=== PATIENT | male | born 1975 | race Caucasian/White ===

== ENCOUNTER 2017-01-24 17:05 | Emergency (ER) | payer OTHER ==
[2017-01-24 17:31] VITALS: RESP 18; TEMP 98.8
[2017-01-24] MEDS ORDERED: SODIUM CHLORIDE 0.9% 1,000 ML IV STA ×2 (20:20)
[2017-01-24 20:54] LABS: Basophils % (A) 0 %; CH 30.7; Eosinophils % (A) 0 %; HCT 47.4 % (39.0-53.0); HDW 2.85; Luc % (Auto) 1; Lymphocytes # (A) 1.2 k/uL (1.0-4.8); Lymphocytes % (A) 6 %; MCH 30.7 pg (25.0-35.0); MCHC 33.8 g/dL (31.0-37.0); MCV 90.7 fL (80.0-100.0); Mean Platelet Volume 7.1; Monocytes # (A) 0.7 k/uL (0-1.0); Monocytes % (A) 4 %; Neutrophils # (A) 15.9 k/uL (1.3-7.7); Neutrophils % (A) 88 %; RBC 5.22 m/uL (4.30-5.90); RDW 13.5 % (11.5-15.5)
[2017-01-24 20:59] LABS: Appearance,Urine Clear (Clear); Bilirubin,Urine Negative (Negative); Glucose,Urine (UA) 4+ (Negative); Ketones,Urine 1+ (Negative); Leukocyte Esterase,Urine Negative (Negative); Nitrite,Urine Negative (Negative); Protein,Urine Negative (Negative); Specific Gravity,Urine 1.031 (1.001-1.035); UA Billing (MACRO vs. MICRO) CHEM; Urobilinogen,Urine <2.0 mg/dL (<2.0)
[2017-01-24 21:11] LABS: ALT 108 U/L (21-72); AST 57 U/L (17-59); Alkaline Phosphatase 173 U/L (38-126); Anion Gap 17 mmol/L; Blood Urea Nitrogen 23 mg/dL (9-20); Calcium 9.9 mg/dL (8.4-10.2); Carbon Dioxide 22 mmol/L (22-30); Chloride 100 mmol/L (98-107); Non-African American GFR(MDRD) >60 (>60 ml/min/1.73 sqM); Potassium 4.5 mmol/L (3.5-5.1); Sodium 139 mmol/L (137-145); Total Protein 8.2 g/dL (6.3-8.2)
[2017-01-24 21:13] LABS: Glucose 490 mg/dL (74-99)
[2017-01-24 22:21] LABS: Glucose,Whole Blood 451 mg/dL (75-99)
[2017-01-24] MEDS ORDERED: INSULIN REGULAR 100 UNIT/ML VIAL SQ STA (22:50)
--- NOTE | 2017-01-24 22:58 | ED ---
General Adult HPI - General Chief complaint: Recheck/Abnormal Lab/Rx Stated complaint: Blood Sugar Time Seen by Provider: 01/24/17 20:13 Source: patient Mode of arrival: ambulatory Limitations: no limitations - History of Present Illness Initial comments: This 41-year-old white male presents complaining of high blood sugar. He apparently has MS and is been obtaining high-dose steroids for the last 2 days for this. He states that he was having MS symptoms of fatigue weakness and leg pain. He received a steroids yesterday and today. He apparently was diagnosed with an elevated fasting blood sugar/new-onset diabetes with a blood sugar of 233 several days ago and was prescribed metformin 500 mg twice a day by his primary doctor just 2 days ago. He then had the high-dose steroids and his blood sugar was found to be 626 today. He received 20 units of insulin at approximately 3:00 today and was sent to the ER for further evaluation. He is essentially asymptomatic at this time. He denies any increased thirst and increased urination fatigue fevers chills or other complaints or modifying factors. - Related Data Home Medications Medication Instructions Recorded Confirmed Aspirin 81 mg PO DAILY 04/04/15 01/24/17 HYDROcodone/APAP 5-325MG [[place] 1 tab PO BID PRN 04/04/15 01/24/17 5-325] Omeprazole 40 mg PO DAILY 04/04/15 01/24/17 QUEtiapine FUMARATE 25 mg PO QID 04/04/15 01/24/17 lamoTRIgine [LaMICtal] 150 mg PO BID 04/04/15 01/24/17 QUEtiapine [SEROquel] 100 mg PO HS 06/07/15 01/24/17 hydrOXYzine PAMOATE 50 mg PO QID PRN 05/30/16 01/24/17 Atorvastatin [Lipitor] 20 mg PO DAILY 01/24/17 01/24/17 Cetirizine HCl 10 mg PO DAILY 01/24/17 01/24/17 Gabapentin 600 mg PO TID 01/24/17 01/24/17 Mirtazapine [Remeron] 30 mg PO HS 01/24/17 01/24/17 metFORMIN HCL [Glucophage] 500 mg PO DAILY 01/24/17 01/24/17 Allergies Allergy/AdvReac Type Severity Reaction Status Date / Time Penicillins Allergy Severe Anaphylaxis Verified 05/16/17 21:33 Review of Systems ROS Statement: Those systems with pertinent positive or pertinent negative responses have been documented in the HPI. ROS Other: All systems not noted in ROS Statement are negative. 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) History of Any Multi-Drug Resistant Organisms: None Reported Past Surgical History: Adenoidectomy, Cholecystectomy, Hernia Repair, Tonsillectomy Past Anesthesia/Blood Transfusion Reactions: No Reported Reaction Past Psychological History: Anxiety, Depression, PTSD Smoking Status: Current every day smoker Past Alcohol Use History: None Reported Past Drug Use History: None Reported Additional Drug Use History / Comment(s): quite smoking marijuana 3.5 months ago - Past Family History Mother Family Medical History: Asthma, COPD, Diabetes Mellitus General Exam - General Exam Comments Initial Comments: GENERAL: The patient is well nourished and well hydrated. VITAL SIGNS: Heart rate, blood pressure, respiratory rate reviewed as recorded in nurse's notes. EYES: Pupils are round and reactive. Extraocular movements are intact. No conjunctival / lid redness or swelling. ENT: No external evidence of injury, swelling, or ecchymosis. Airway is patent. Throat is clear. NECK: Nontender. No swelling or evidence of injury. No subcutaneous emphysema. Trachea is midline. No thyroid mass. HEART: Regular rate and rhythm. Good peripheral pulses. LUNGS/CHEST: Breath sounds clear and equal bilaterally. No rales, rhonchi, or wheezes. No ecchymosis, subcutaneous emphysema, or tenderness. ABDOMEN: Abdomen soft without tenderness. No palpable masses or organomegaly. No peritoneal signs. No abdominal wall swelling or ecchymosis. EXTREMITIES: No extremity tenderness. Normal muscle tone and function. No thoracolumbar tenderness. NEUROLOGIC: Sensation is grossly intact. Cranial nerve exam reveals face is symmetrical, tongue is midline, speech is clear. SKIN: No abrasions or ecchymosis is noted. No induration or masses noted. PSYCHIATRIC: Alert and oriented. Appropriate behavior and judgment. Limitations: no limitations Course Vital Signs 01/24/17 01/24/17 01/24/17 17:25 20:48 21:49 Temperature 98.8 F Pulse Rate 92 92 93 Respiratory 18 18 18 Rate Blood Pressure 160/92 151/84 150/85 O2 Sat by Pulse 92 L 95 94 L Oximetry Medical Decision Making - Medical Decision Making The patient was seen and examined. All diagnostics were reviewed. His blood sugar was proximally 490 on the labs did come down to 450 on recheck. He receives some ample fluid hydration. The remainder of labs are essentially within normal limits except for a leukocytosis which is likely reactive to the high-dose steroids. He still remains asymptomatic on recheck. Overall, is felt that he stable for discharge. He states that he will be able to follow-up with his doctor tomorrow. He receives 16 more units of insulin subcu. Diet therapy is discussed. He leaves in no distress. Return parameters are discussed. It is felt as though he should avoid any further high-dose steroids and less absolutely necessary and this should be cleared by his PCP prior to receiving them. - Lab Data Result diagrams: 01/24/17 20:37 01/24/17 20:37 Lab Results 01/24/17 01/24/17 01/24/17 Range/Units 20:37 20:37 20:37 WBC 18.0 H (3.8-10.6) k/uL RBC 5.22 (4.30-5.90) m/uL Hgb 16.0 (13.0-17.5) gm/dL Hct 47.4 (39.0-53.0) % MCV 90.7 (80.0-100.0) fL MCH 30.7 (25.0-35.0) pg MCHC 33.8 (31.0-37.0) g/dL RDW 13.5 (11.5-15.5) % Plt Count 237 (150-450) k/uL Neutrophils % 88 % Lymphocytes % 6 % Monocytes % 4 % Eosinophils % 0 % Basophils % 0 % Neutrophils # 15.9 H (1.3-7.7) k/uL Lymphocytes # 1.2 (1.0-4.8) k/uL Monocytes # 0.7 (0-1.0) k/uL Eosinophils # 0.0 (0-0.7) k/uL Basophils # 0.0 (0-0.2) k/uL Sodium 139 (137-145) mmol/L Potassium 4.5 (3.5-5.1) mmol/L Chloride 100 (98-107) mmol/L Carbon Dioxide 22 (22-30) mmol/L Anion Gap 17 mmol/L BUN 23 H (9-20) mg/dL Creatinine 1.06 (0.66-1.25) mg/dL Est GFR (MDRD) Af Amer >60 (>60 ml/min/1.73 sqM) Est GFR (MDRD) Non-Af >60 (>60 ml/min/1.73 sqM) Glucose 490 H* (74-99) mg/dL POC Glucose (mg/dL) (75-99) mg/dL POC Glu Biostatistics Manager ID Calcium 9.9 (8.4-10.2) mg/dL Total Bilirubin 1.0 (0.2-1.3) mg/dL AST 57 (17-59) U/L ALT 108 H (21-72) U/L Alkaline Phosphatase 173 H (38-126) U/L Total Protein 8.2 (6.3-8.2) g/dL Albumin 4.6 (3.5-5.0) g/dL Urine Color Light Yellow Urine Appearance Clear (Clear) Urine pH 5.0 (5.0-8.0) Ur Specific [place] 1.031 (1.001-1.035) Urine Protein Negative (Negative) Urine Glucose (UA) 4+ H (Negative) Urine Ketones 1+ H (Negative) Urine Blood Negative (Negative) Urine Nitrite Negative (Negative) Urine Bilirubin Negative (Negative) Urine Urobilinogen <2.0 (<2.0) mg/dL Ur Leukocyte Esterase Negative (Negative) Acetone, Qual Negative (Negative) 01/24/17 Range/Units 22:16 WBC (3.8-10.6) k/uL RBC (4.30-5.90) m/uL Hgb (13.0-17.5) gm/dL Hct (39.0-53.0) % MCV (80.0-100.0) fL MCH (25.0-35.0) pg MCHC (31.0-37.0) g/dL RDW (11.5-15.5) % Plt Count (150-450) k/uL Neutrophils % % Lymphocytes % % Monocytes % % Eosinophils % % Basophils % % Neutrophils # (1.3-7.7) k/uL Lymphocytes # (1.0-4.8) k/uL Monocytes # (0-1.0) k/uL Eosinophils # (0-0.7) k/uL Basophils # (0-0.2) k/uL Sodium (137-145) mmol/L Potassium (3.5-5.1) mmol/L Chloride (98-107) mmol/L Carbon Dioxide (22-30) mmol/L Anion Gap mmol/L BUN (9-20) mg/dL Creatinine (0.66-1.25) mg/dL Est GFR (MDRD) Af Amer (>60 ml/min/1.73 sqM) Est GFR (MDRD) Non-Af (>60 ml/min/1.73 sqM) Glucose (74-99) mg/dL POC Glucose (mg/dL) 451 H (75-99) mg/dL POC Glu Biostatistics Manager ID Kles, Pratima Calcium (8.4-10.2) mg/dL Total Bilirubin (0.2-1.3) mg/dL AST (17-59) U/L ALT (21-72) U/L Alkaline Phosphatase (38-126) U/L Total Protein (6.3-8.2) g/dL Albumin (3.5-5.0) g/dL Urine Color Urine Appearance (Clear) Urine pH (5.0-8.0) Ur Specific [place] (1.001-1.035) Urine Protein (Negative) Urine Glucose (UA) (Negative) Urine Ketones (Negative) Urine Blood (Negative) Urine Nitrite (Negative) Urine Bilirubin (Negative) Urine Urobilinogen (<2.0) mg/dL Ur Leukocyte Esterase (Negative) Acetone, Qual (Negative) Disposition Clinical Impression: Hyperglycemia, Leukocytosis, Hypertension, Multiple sclerosis, New onset type 2 diabetes mellitus Disposition: HOME SELF-CARE Condition: Good Instructions: Type 2 Diabetes in Adults (ED) Additional Instructions: Please follow-up with your doctor for further diabetic treatment tomorrow without fail. Please drink plenty of water. Referrals: Arash Prather DO [Primary Care Provider] - 1-2 days Time of Disposition: 22:54
[2017-01-24 23:37] VITALS: BP 148/69; PULSE 97
[2017-01-24 23:37] LABS: Glucose,Whole Blood 451 mg/dL (75-99)
[2017-01-25 07:44] LABS: Glucose,Whole Blood 536 mg/dL (75-99)
[2017-01-25 07:44] LABS: Glucose,Whole Blood 483 mg/dL (75-99)
== END 2017-01-24 23:37 | disposition home or self-care (01) ==
LOC: EC 17:05
DX: E11.65 Type 2 diabetes mellitus with hyperglycemia (principal); I10 Essential (primary) hypertension; G35 Multiple sclerosis; D72.829 Elevated white blood cell count, unspecified; G40.909 Epilepsy, unspecified, not intractable, without status epilepticus; F43.10 Post-traumatic stress disorder, unspecified; F41.9 Anxiety disorder, unspecified; F32.9 Major depressive disorder, single episode, unspecified; G62.9 Polyneuropathy, unspecified; F17.200 Nicotine dependence, unspecified, uncomplicated; Z79.82 Long term (current) use of aspirin; Z79.84 Long term (current) use of oral hypoglycemic drugs; Z79.899 Other long term (current) drug therapy; Z88.0 Allergy status to penicillin; Z83.3 Family history of diabetes mellitus
CPT/HCPCS: 36415; 80053; 81003; 82009; 82947; 85025; 96360; 96361; 96365; 99283

== ENCOUNTER → 2017-08-01 | Outpatient (CLI) | payer OTHER ==
--- NOTE | 2017-08-01 14:47 | MR ---
EXAMINATION TYPE: MR brain wo/w con DATE OF EXAM: 08/01/2017 COMPARISON: 06/04/2016 HISTORY: MS TECHNIQUE: Multiplanar, multisequence images of the brain and brainstem is performed without and with IV contras t, utilizing 8 mL intravenous Gadavist gadolinium contrast is administered intravenously. Demyelinat ing disease protocol with additional Sagittal Flair sequence performed. Motion is noted and limits th e examination as the technologist notes that the patient was falling asleep during the examination. FINDINGS: T2 Lesions Present : Yes Approximate Number of Lesions: Multiple scattered as seen on the prior. Locations Identified : Pericallosal, Periventricular, and Juxtacortical. Size of Reference Lesion(s): 1. Left: 0.5 cm x 0.4 cm x 0.6 cm on axial image 21 and sagittal image 8 of FLAIR sequence axial and coronal images. This is similar to the prior examination where it measured 0.6 x 0.4 x 0.5 cm in the left centrum semiovale parietal lobe. 2. Right: 0.6 cm x 0.6 cm x 0.5 cm on axial image 24 and sagittal image 28 of FLAIR sequence axial an d coronal images. This is similar to the prior examination where it measured 0.7 x 0.7 x 0.4 cm in th e subcortical right parietal centrum semiovale. Enhancing Lesion(s) Present: No Change from Prior: Stable Diffusion weighted images demonstrate no evidence of a recent infarct or other diffusion abnormality. There is no worrisome extra-axial fluid collection. The ventricular system and cisternal spaces ar e normal in size and appearance. The brain volume is age appropriate. Midline structures demonstrate normal morphology. The craniocervical junction appears within normal limits. Post contrast images demonstrate no abnormal enhancement. The dural venous sinuses appear pa tent. Mild mucosal thickening is seen within the left maxillary sinus and ethmoid sinuses. The remain ing visualized sinuses are clear and the globes are intact. IMPRESSION: Stable numerous supratentorial bilateral white matter plaques compatible with the patient 's history of multiple sclerosis in comparison to the exam of 06/04/2016. No enhancing lesions or lesi ons that restricted diffusion to indicate active demyelination.
== END | disposition home or self-care (01) ==
LOC: RADMRIMAIN 12:38
PROVIDERS: ATTEND Physician Assistant
DX: R90.82 White matter disease, unspecified (principal)
CPT/HCPCS: 70553; A9581

== ENCOUNTER → 2018-07-12 | Outpatient (CLI) | payer OTHER ==
--- NOTE | 2018-07-15 17:40 | MR ---
EXAMINATION TYPE: MR brain wo/w con DATE OF EXAM: 07/12/2018 COMPARISON: 08/01/2017 HISTORY: 43-year-old male follow-up MS, compare to prior 08-01-17 TECHNIQUE: Multiplanar, multisequence images of the brain and brainstem is performed without and with utilizing 13 mL intravenous Gadavist gadolinium contrast. Demyelinating disease protocol with additional Sagit lynda Flair sequence performed. FINDINGS: Prominent motion artifacts are present. T2 Lesions Present : Yes Approximate Number of Lesions: Numerous scattered, approximately 40-50 in each cerebral hemisphere. Locations Identified : Juxtacortical, periventricular, and deep white matter Size of Reference Lesion(s): 1. 6 mm subcortical a few right parietal lobe, axial image 22, unchanged. 2 6 mm subcortical left frontoparietal junction, axial image 20, unchanged. Enhancing Lesion(s) Present: No T1 Hypointense Lesion(s) Present: Yes but assessment is limited on the sagittal T1 sequence due to mo tion artifacts. Change from Prior: Stable. Diffusion weighted images demonstrate no evidence of a recent infarct or other diffusion abnormality. There is no worrisome extra-axial fluid collection. The ventricular system and cisternal spaces ar e normal in size and appearance. The brain volume is age appropriate. Midline structures demonstrate normal morphology. The craniocervical junction appears within normal limits. Post contrast images demonstrate no abnormal enhancement. The dural venous sinuses appear patent. There is moderate mucosal thickening within the bilateral maxillary and left sphenoid sinuses. Some f rothy partial opacification also seen within the right maxillary sinus. Globes are intact. IMPRESSION: 1. Chronic T2 bright white matter change with moderate to severe scattered burden in both cerebral he mispheres. Findings remain stable from prior exam. 2. No enhancing plaques or restricted diffusion to suggest active demyelination. 3. Moderate chronic maxillary and sphenoid sinus disease with possible superimposed acute right maxil saba sinusitis.
== END ==
LOC: RADMRIMAIN 14:38
PROVIDERS: ATTEND Psychiatry & Neurology Neurology
DX: G80.8 Other cerebral palsy (principal); R90.89 Other abnormal findings on diagnostic imaging of central nervous system; G35 Multiple sclerosis; Z88.0 Allergy status to penicillin
CPT/HCPCS: 70553; A9585

== ENCOUNTER 2021-08-07 00:21 | Inpatient (IN) | payer OTHER ==
[2021-08-07] MEDS ORDERED: LORazepam 2 MG/ML INJ IV STA (00:34)
[2021-08-07] MEDS ORDERED: ONDANSETRON 4 MG/2 ML VIAL IVP STA (00:34)
[2021-08-07] MEDS ORDERED: SODIUM CHLORIDE 0.9% 1,000 ML IV STA (00:34)
--- NOTE | 2021-08-07 00:39 | ED ---
Altered Mental Status HPI - General Stated Complaint: Altered Mental Status Time Seen by Provider: 08/07/21 00:23 Source: RN notes reviewed, old records reviewed Mode of arrival: EMS Limitations: altered mental status - History of Present Illness Initial Comments: This is a 46-year-old male with significant altered mental status patient coming in for evaluation of altered mental status. EMS called by family in roommates is patient was acting more unresponsive and having difficulty communicating. Patient does not necessarily atelectasis on a normal basis or with EMS. He may have history of seizures but they weren't sure. No other significant medical history as far as drug or alcohol abuse. He does have high blood pressure MD Complaint: altered mental status, confusion, decreased responsiveness -: minutes(s) Severity: mild, moderate Consistency of Symptoms: getting worse Context: history of similar presentation Associated Symptoms: diaphoresis Treatments Prior to Arrival: IV fluid, oxygen - Related Data Home Medications Medication Instructions Recorded Confirmed Aspirin 81 mg PO DAILY 04/04/15 01/24/17 HYDROcodone/APAP 5-325MG [[place] 1 tab PO BID PRN 04/04/15 01/24/17 5-325] Omeprazole 40 mg PO DAILY 04/04/15 01/24/17 QUEtiapine FUMARATE 25 mg PO QID 04/04/15 01/24/17 lamoTRIgine [LaMICtal] 150 mg PO BID 04/04/15 01/24/17 QUEtiapine [SEROquel] 100 mg PO HS 06/07/15 01/24/17 hydrOXYzine pamoate [hydrOXYzine 50 mg PO QID PRN 05/30/16 01/24/17 PAMOATE] Atorvastatin [Lipitor] 20 mg PO DAILY 01/24/17 01/24/17 Cetirizine HCl 10 mg PO DAILY 01/24/17 01/24/17 Gabapentin 600 mg PO TID 01/24/17 01/24/17 Mirtazapine [Remeron] 30 mg PO HS 01/24/17 01/24/17 metFORMIN HCL [Glucophage] 500 mg PO DAILY 01/24/17 01/24/17 Allergies Allergy/AdvReac Type Severity Reaction Status Date / Time Penicillins Allergy Severe Anaphylaxis Verified 08/07/21 00:40 Review of Systems ROS Statement: Those systems with pertinent positive or pertinent negative responses have been documented in the HPI. ROS Other: All systems not noted in ROS Statement are negative. 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) History of Any Multi-Drug Resistant Organisms: None Reported Past Surgical History: Adenoidectomy, Cholecystectomy, Hernia Repair, Tonsillectomy Past Anesthesia/Blood Transfusion Reactions: No Reported Reaction Past Psychological History: Anxiety, Depression, PTSD Past Alcohol Use History: None Reported Past Drug Use History: None Reported Additional Drug Use History / Comment(s): quite smoking marijuana 3.5 months ago - Past Family History Mother Family Medical History: Asthma, COPD, Diabetes Mellitus General Exam General appearance: alert, in no apparent distress Head exam: Present: atraumatic, normocephalic, normal inspection Eye exam: Present: normal appearance, PERRL, EOMI. Absent: scleral icterus, conjunctival injection, periorbital swelling ENT exam: Present: normal exam, mucous membranes moist Neck exam: Present: normal inspection. Absent: tenderness, meningismus, lympha denopathy Respiratory exam: Present: normal lung sounds bilaterally. Absent: respiratory distress, wheezes, rales, rhonchi, stridor Cardiovascular Exam: Present: regular rate, normal rhythm, normal heart sounds. Absent: systolic murmur, diastolic murmur, rubs, gallop, clicks GI/Abdominal exam: Present: soft, normal bowel sounds. Absent: distended, tenderness, guarding, rebound, rigid Extremities exam: Present: normal inspection, full ROM, normal capillary refill. Absent: tenderness, pedal edema, joint swelling, calf tenderness Back exam: Present: normal inspection Neurological exam: Present: alert, oriented X3, CN II-XII intact Psychiatric exam: Present: normal affect, normal mood Skin exam: Present: warm, dry, intact, normal color. Absent: rash Course Vital Signs 08/07/21 08/07/21 00:35 01:40 Temperature 98.7 F Pulse Rate 100 84 Respiratory 25 H 16 Rate Blood Pressure 125/85 116/73 O2 Sat by Pulse 95 97 Oximetry - Reevaluation(s) Reevaluation #1: 08/07/21 00:39 Medical record is reviewed Medical Decision Making - Lab Data Result diagrams: 08/07/21 00:41 08/07/21 01:01 Lab Results 08/07/21 08/07/21 08/07/21 Range/Units 00:41 01:01 01:01 WBC 10.4 (3.8-10.6) k/uL RBC 5.09 (4.30-5.90) m/uL Hgb 16.0 (13.0-17.5) gm/dL Hct 45.6 (39.0-53.0) % MCV 89.6 (80.0-100.0) fL MCH 31.5 (25.0-35.0) pg MCHC 35.1 (31.0-37.0) g/dL RDW 13.4 (11.5-15.5) % Plt Count 327 (150-450) k/uL MPV 7.4 Neutrophils % 69 % Lymphocytes % 15 % Monocytes % 9 % Eosinophils % 3 % Basophils % 1 % Neutrophils # 7.2 (1.3-7.7) k/uL Lymphocytes # 1.5 (1.0-4.8) k/uL Monocytes # 1.0 (0-1.0) k/uL Eosinophils # 0.3 (0-0.7) k/uL Basophils # 0.1 (0-0.2) k/uL PT 10.3 (9.0-12.0) sec INR 1.0 (<1.2) APTT 21.2 L (22.0-30.0) sec Sodium 139 (137-145) mmol/L Potassium 4.1 (3.5-5.1) mmol/L Chloride 105 (98-107) mmol/L Carbon Dioxide 24 (22-30) mmol/L Anion Gap 10 mmol/L BUN 21 H (9-20) mg/dL Creatinine 1.02 (0.66-1.25) mg/dL Est GFR (CKD-EPI)AfAm >90 (>60 ml/min/1.73 sqM) Est GFR (CKD-EPI)NonAf 87 (>60 ml/min/1.73 sqM) Glucose 166 H (74-99) mg/dL Plasma Lactic Acid Sonny (0.7-2.0) mmol/L Calcium 9.7 (8.4-10.2) mg/dL Phosphorus 3.7 (2.5-4.5) mg/dL Magnesium 1.7 (1.6-2.3) mg/dL Total Bilirubin 0.3 (0.2-1.3) mg/dL AST 25 (17-59) U/L ALT 27 (4-49) U/L Alkaline Phosphatase 71 (38-126) U/L Troponin I (0.000-0.034) ng/mL NT-Pro-B Natriuret Pep pg/mL Total Protein 7.4 (6.3-8.2) g/dL Albumin 4.4 (3.5-5.0) g/dL Serum Alcohol <10 mg/dL 08/07/21 08/07/21 08/07/21 Range/Units 01:01 01:01 01:01 WBC (3.8-10.6) k/uL RBC (4.30-5.90) m/uL Hgb (13.0-17.5) gm/dL Hct (39.0-53.0) % MCV (80.0-100.0) fL MCH (25.0-35.0) pg MCHC (31.0-37.0) g/dL RDW (11.5-15.5) % Plt Count (150-450) k/uL MPV Neutrophils % % Lymphocytes % % Monocytes % % Eosinophils % % Basophils % % Neutrophils # (1.3-7.7) k/uL Lymphocytes # (1.0-4.8) k/uL Monocytes # (0-1.0) k/uL Eosinophils # (0-0.7) k/uL Basophils # (0-0.2) k/uL PT (9.0-12.0) sec INR (<1.2) APTT (22.0-30.0) sec Sodium (137-145) mmol/L Potassium (3.5-5.1) mmol/L Chloride (98-107) mmol/L Carbon Dioxide (22-30) mmol/L Anion Gap mmol/L BUN (9-20) mg/dL Creatinine (0.66-1.25) mg/dL Est GFR (CKD-EPI)AfAm (>60 ml/min/1.73 sqM) Est GFR (CKD-EPI)NonAf (>60 ml/min/1.73 sqM) Glucose (74-99) mg/dL Plasma Lactic Acid Sonny 3.8 H* (0.7-2.0) mmol/L Calcium (8.4-10.2) mg/dL Phosphorus (2.5-4.5) mg/dL Magnesium (1.6-2.3) mg/dL Total Bilirubin (0.2-1.3) mg/dL AST (17-59) U/L ALT (4-49) U/L Alkaline Phosphatase (38-126) U/L Troponin I <0.012 (0.000-0.034) ng/mL NT-Pro-B Natriuret Pep 39 pg/mL Total Protein (6.3-8.2) g/dL Albumin (3.5-5.0) g/dL Serum Alcohol mg/dL - EKG Data -: EKG Interpreted by Me (EKG shows sinus tachycardia 102 OH 180 QRS 88 QTc 432) Disposition Clinical Impression: Altered mental status, Multiple sclerosis, New onset seizure Disposition: ADMITTED IP TO THIS [facility] Condition: Good Instructions (If sedation given, give patient instructions): Seizure/Epilepsy Discharge Instructions & Follow-Up Is patient prescribed a controlled substance at d/c from ED?: No Referrals: None,Stated [REFERRING] - 1-2 days
[2021-08-07] MEDS ORDERED: levETIRAcetam IV 1,000 MG in SALINE 1 100ML.BAG IVPB ONE (00:45)
[2021-08-07] MEDS ORDERED: TRANEXAMIC ACID 1,000 MG in SODIUM CHLORIDE 0.9% 100 ML IVPB ONE (01:00)
[2021-08-07 01:10] LABS: Basophils # (A) 0.1 k/uL (0-0.2); Basophils % (A) 1 %; Eosinophils # (A) 0.3 k/uL (0-0.7); Eosinophils % (A) 3 %; HCT 45.6 % (39.0-53.0); Lymphocytes # (A) 1.5 k/uL (1.0-4.8); Lymphocytes % (A) 15 %; MCH 31.5 pg (25.0-35.0); MCHC 35.1 g/dL (31.0-37.0); MCV 89.6 fL (80.0-100.0); Mean Platelet Volume 7.4; Monocytes % (A) 9 %; Neutrophils # (A) 7.2 k/uL (1.3-7.7); Neutrophils % (A) 69 %; Platelet Count 327 k/uL (150-450); RBC 5.09 m/uL (4.30-5.90); RDW 13.4 % (11.5-15.5); WBC 10.4 k/uL (3.8-10.6)
[2021-08-07 01:26] LABS: ALT 27 U/L (4-49); AST 25 U/L (17-59); African American GFR (CKD) >90 (>60 ml/min/1.73 sqM); Albumin 4.4 g/dL (3.5-5.0); Alcohol <10 mg/dL; Alkaline Phosphatase 71 U/L (38-126); Anion Gap 10 mmol/L; Blood Urea Nitrogen 21 mg/dL (9-20); Calcium 9.7 mg/dL (8.4-10.2); Carbon Dioxide 24 mmol/L (22-30); Chloride 105 mmol/L (98-107); Glucose 166 mg/dL (74-99); Magnesium 1.7 mg/dL (1.6-2.3); Non-African American GFR(CKD) 87 (>60 ml/min/1.73 sqM); Phosphorus 3.7 mg/dL (2.5-4.5); Potassium 4.1 mmol/L (3.5-5.1); Sodium 139 mmol/L (137-145); Total Bilirubin 0.3 mg/dL (0.2-1.3); Total Protein 7.4 g/dL (6.3-8.2)
[2021-08-07 01:29] LABS: Prothrombin Time 10.3 sec (9.0-12.0)
--- NOTE | 2021-08-07 01:30 | CT ---
EXAMINATION TYPE: CT brain wo con DATE OF EXAM: 08/07/2021 COMPARISON: HISTORY: AMS CT DLP: 1127.4 mGycm Automated exposure control for dose reduction was used. Ventricles have normal size. There is no mass effect nor midline shift. There is no sign of intracran ial hemorrhage. Calvarium is intact. There is mucosal thickening in the maxillary sinuses. IMPRESSION: Negative CT scan of the brain. Maxillary sinusitis. Brain not changed compared to MR scan of 8.
[2021-08-07 01:33] LABS: Partial Thromboplastin Time 21.2 sec (22.0-30.0)
[2021-08-07] MEDS ORDERED: NALOXONE 0.4 MG/ML 1 ML VIAL IV PRN (02:26)
[2021-08-07] MEDS ORDERED: ONDANSETRON 4 MG/2 ML VIAL IVP PRN (02:26)
[2021-08-07] MEDS: SODIUM CHLORIDE 0.9% 1,000 ML IV SCH ×3 (03:17→20:25)
[2021-08-07] MEDS: LORazepam 2 MG/ML INJ IV PRN ×2 (03:49→09:44)
--- NOTE | 2021-08-07 10:59 | P.CNNES ---
History of Present Illness Consult date: 08/07/21 Requesting physician: Brenden Rider Reason for Consult: new seizure History of Present Illness: This is a 46-year-old gentleman with medical history of seizure, multiple sclerosis, peripheral neuropathy, hypertension, duodenal ulcer, anxiety and depression who presented emergency department on 08/07/2021 altered mental status. She is a poor historian and some of the history is obtained from medical records. Per the ED, it is reported that the patient was more unresponsive and having difficulty communicating that was reported to EMS. Per the patient he resides with his 2 friends and denies a having any report of seizure-like activity by his friends. He said the his last seizure was about 8- 10 years ago. He denies of any fever, any headache, any neck pain, any focal weakness, any new numbness or tingling. He denies of any difficulty getting his words out or swallowing. Per the patient's nurse over night nurse stated that the patient had the episodes of vomiting. Per the patient nurse no seizure-like activity during this admission so far. She stated that he is on Lamictal 150 mg a tablet twice a day for his mood and not prescribed for seizure. It seems that his outpatient pharmacy was contacted per the nurse and looks like his Lamictal was last filled in February 2021 for 2 months supply and not filled after that. Per the patient he continues to be on medications but he was inconsistent about that He said in the past he was on Keppra for his seizures but that was a long time ago. Patient stated that the he has a history of relapsing remitting multiple sclerosis. He says that he fol lows up with Dr. Villanueva for his neurological management. He cannot tell me what medication he is on for relapsing remitting multiple sclerosis. He stated that in the past he had weakness of upper and lower extremity and had a CSF fluid once in the past and it was normal. Some of his other medication as per EMR metformin, Remeron 30 mg daily at bedtime, gabapentin 600 mg a tablet 3 times a day, aspirin 81 mg daily, cetirizine, baclofen 10 mg daily, all per his all, Lasix, losartan, trazodone, pravastatin, fiber 860 mg daily. Of note patient had multiple MRIs in our facility in the last 1 was on 07/15/2018 is reported as chronic T2 bright white matter changes with moderate to severe scattered burden in both cerebral hemisphere. Finding remained stable from prior exam. No enhancing plaques or restricted diffusion to suggest active demyelination. Moderate chronic maxillary and sphenoid sinus disease with possible superimposed acute right maxillary sinusitis. Some of the workup in the hospital consisted of: Initial vital signs his blood pressure 125/85, heart rate of 100, respiratory of 25, temperature of 98.7 Fahrenheit and pulse ox of the 95% room air. CBC with differential is unremarkable Sodium was 139, creatinine is 1.02, BUN 21, initial serum glucose is 166, calci um 9.7, phosphorus is 3.7, magnesium is 1.7, AST of 25, ALT of 27. Serum lactic acid and initial one is 3.8 and is trending down Serum alcohol level was less than 10 Harper virus PCR was not detected. CT of the head is reported as negative CT scan of the brain. Maxillary sinusitis. Brain not change compared to the MRI scan of 07/2018. Personally reviewed the CT of the head and there is no acute or subacute ischemia and there is no intraparenchymal hemorrhage. Review of Systems Review of system: The 12 point system was reviewed and apparent positive and negative per HPI. 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) History of Any Multi-Drug Resistant Organisms: None Reported Past Surgical History: Adenoidectomy, Cholecystectomy, Hernia Repair, Tonsillectomy Past Anesthesia/Blood Transfusion Reactions: No Reported Reaction Past Psychological History: Anxiety, Depression, PTSD Past Alcohol Use History: None Reported Past Drug Use History: None Reported Additional Drug Use History / Comment(s): quite smoking marijuana 3.5 months ago - Past Family History Mother Family Medical History: Asthma, COPD, Diabetes Mellitus Medications and Allergies Home Medications Medication Instructions Recorded Confirmed Type Omeprazole 20 mg PO DAILY 04/04/15 08/07/21 History hydrOXYzine pamoate [hydrOXYzine 50 mg PO BID PRN 05/30/16 08/07/21 History PAMOATE] Cetirizine HCl 10 mg PO DAILY 01/24/17 08/07/21 History Acetaminophen Tab [Tylenol Tab] 1,000 mg PO Q6H PRN 08/07/21 08/07/21 History Albuterol Sulfate [Proair Hfa] 1 - 2 puff INHALATION DIRECTED 08/07/21 08/07/21 History PRN Baclofen [Lioresal] 10 mg PO DAILY 08/07/21 08/07/21 History Cholecalciferol [Vitamin D3 (25 25 mcg PO DAILY 08/07/21 08/07/21 History Mcg = 1000 Iu)] Diroximel Fumarate [Vumerity] 462 mg PO BID 08/07/21 08/07/21 History Fenofibrate [Lofibra] 160 mg PO DAILY 08/07/21 08/07/21 History Furosemide [Lasix] 20 mg PO DIRECTED 08/07/21 08/07/21 History Gabapentin 800 mg PO TID 08/07/21 08/07/21 History Glimepiride [Amaryl] 4 mg PO DIRECTED 08/07/21 08/07/21 History HYDROcodone/APAP 10-325MG [[place] 1 tab PO TID 08/07/21 08/07/21 History 10-325] Ibuprofen [Motrin] 800 mg PO Q6H PRN 08/07/21 08/07/21 History Losartan [Cozaar] 25 mg PO DIRECTED 08/07/21 08/07/21 History Metoprolol Tartrate [Lopressor] 25 mg PO DIRECTED 08/07/21 08/07/21 History Mirtazapine [Remeron] 45 mg PO HS 08/07/21 08/07/21 History Pravastatin Sodium [Pravachol] 40 mg PO DAILY 08/07/21 08/07/21 History hydrALAZINE HCL [Apresoline] 50 mg PO DAILY 08/07/21 08/07/21 History lamoTRIgine [LaMICtal] 150 mg PO DIRECTED 08/07/21 08/07/21 History metFORMIN HCL [Glucophage] 1,000 mg PO BID 08/07/21 08/07/21 History traZODone HCL [Desyrel] 100 mg PO HS 08/07/21 08/07/21 History Allergies Allergy/AdvReac Type Severity Reaction Status Date / Time Penicillins Allergy Severe Anaphylaxis Verified 08/07/21 09:04 Physical Examination - Vital Signs Vital Signs: Vital Signs Temp Pulse Resp BP Pulse Ox 08/07/21 07:34 93 18 126/73 96 11/27/21 06:00 93 16 123/69 95 08/07/21 03:00 90 16 131/55 96 08/07/21 01:40 84 16 116/73 97 08/07/21 00:35 98.7 F 100 25 H 125/85 95 Intake and Output 08/06/21 08/07/21 08/07/21 22:59 06:59 14:59 Other: Weight 113.398 kg GENERAL: The patient is lying in bed and is not in acute distress. CHEST: The heart rate is regular rate rhythm. No murmurs to auscultation. No carotid bruit bilaterally. LUNG: Clear to auscultation bilaterally no wheezing noted throughout. Not labored breathing. ABDOMEN/GI: Bowel sounds present in all 4 quadrants. No tenderness to palpation throughout. PSYCH: Flat affect. NEUROLOGICAL: Higher mental function: The patient is awake, alert, oriented to self, place and month but not year. He kept on saying 1986. He is able to name objects correctly (pen, watch, glasses). Patient is following simple commands. No aphasia and no neglect. Cranial nerves: The pupils are round, equal and reactive to light and accommodation. Visual agustin are full to confrontation throughout. Extraocular movement is intact no nystagmus is noted. Facial sensation is normal to touch throughout. The facial strength is normal throughout. Hearing is normal bilaterally to hand rub. Tongue is midline and moved [id number] without any difficulty. No dysarthria is noted. Shoulder shrug is normal bilaterally. Motor: Gait is deferred. The strength is 5 over 5 throughout. Normal tone and bulk. Cerebellum: Normal finger to nose bilaterally. Sensation: Sensation is normal to touch throughout. Reflexes (right/left): 3+ thorughout uppers while lowers are 2+. Plantars are downgoing bilaterally. Results - Laboratory Findings CBC and BMP: 08/07/21 00:41 08/07/21 01:01 Abnormal Lab Findings: Abnormal Labs 08/07/21 08/07/21 08/07/21 01:01 01:01 01:01 APTT 21.2 L BUN 21 H Glucose 166 H Plasma Lactic Acid Sonny 3.8 H* 08/07/21 04:30 APTT BUN Glucose Plasma Lactic Acid Sonny 2.3 H* Assessment and Plan Assessment: Reported Altered mental status with elevated lactic: Encephalopathy of unknown etiology. Cannot exclude seizure (especially because of history of seizure. Per outpatient pharmacy patient has not filled his Lamictal recently (but per patient he continues to take Lamictal but he was inconsistent and said he is on it only for mood and last seizure was 8-10 years ago). Rule out any other under lying infection. History of Reported Seizures (last seizure 8-10 years ago according to patient). Reported history of Relapsing-Remitting multiple sclerosis History Peripheral neuropathy Hypertension History of duodenal ulcer Anxiety Depression Plan: * The ED the patient was given Keppra loading dose of 1000 mg once then was given 1 mg of Ativan. * I restarted the patient Lamictal 150 mg 1 tablet twice a day. We'll get Lamictal levels. * I ordered MRI of the brain and C-spine with and without * Routine EEG is ordered by that ED team (will get done this Monday). * Every 4 hours neuro checks * Placed on seizure precautions seizure pads * The ED team give the patient Solu-Medrol 250 mg once start the patient on 500 every 6 hours because of the patient's history of multiple sclerosis. I stopped the Solu-Medrol and will get MRI of the brain and cervical spine to find out whether he truly has any demyelinating lesion on the images and if there is any new lesion will start the patient on steroids. * Ordered TSH, vitamin B12, folate, ammonia level. * Consulted psychiatry team because of his mood disorder as well as polypharmacy. * We'll defer the rest of the medical management to the primary team. * Upon discharge the patient needs to follow-up with a neurologist (Dr. Villanueva) as an outpatient within 1-2 weeks. Plan was discussed with the patient's nurse. Thank you for the consultation Cesar Prather M.D. Neuro-hospitalist Time with Patient: Greater than 30
[2021-08-07] MEDS: lamoTRIgine 100 MG TAB PO SCH ×3 (11:10→11:12)
[2021-08-07] MEDS: lamoTRIgine 25 MG TAB PO SCH ×2 (11:12→20:26)
[2021-08-07] MEDS ORDERED: hydrOXYzine pamoate 25 MG CAP PO PRN (12:09)
--- NOTE | 2021-08-07 12:17 | P.CN ---
Psychiatric Consult - . Consult date: 08/07/21 Consult:: 08/07/21 10:50 IDENTIFYING DATA: This patient is a 46-year-old male, who currently lives with his friend in the house has 4 kids and is . He is collecting Social Security disability. REASON FOR REFERRAL: Psychiatry was consulted for "mood disorder, polypharmacy." HISTORY OF PRESENT ILLNESS: The patient presented to the hospital with altered mental status via EMS. Patient apparently was unresponsive at home and a pparently has a history of seizures. His computed tomography scan was negative. Neurology has been following along. Patients nurse claims a patient has been confused and disoriented and family claims that he has been using methamphetamine. He has a questionable history of seizures. Patient was seen sleeping and was awoken by staff writer today. He was agreeable to speak. He claims that he is feeling sleepy and she was having difficulties with walking and not coherent at home. He claims that this is the first time it's ever happened and he is seeing a neurologist in the community. He claims that he is taking his medications at home every day. He claims that when this event occurred he was at home sleeping. He states that he follows up with his primary care provider for his medications. He states that his mood is "fine" and is denying any depression or anxiety today. He does admit to a history of depression however. He states that his sleep has been "on and off". He claims that his appetite is fair. He was oriented to month and year however did not know today's specific date. He does know the current president. He knows that he is in [place] in a hospital. He knows his full name. He was not able to list the days of the week backwards correctly. He has fair attention span.. At this time patient denies any suicidal or homical ideations, intent or plan. Patient denies any auditory, visual hallucinations and denies any paranoia or delusions. Patients admits to using marijuana daily and cigarettes. He denies any other recreational drug use. PAST PSYCHIATRIC HISTORY: Patient has a a history of cannabis use pressured and anxiety. He claims that he was on trazodone Vistaril Remeron and Lamictal in the past. Patient denies any previous psychiatric hospitalizations. Patient denies any psychiatric outpatient follow-up. He states that he currently follows up with his PCP for his medications. Patient denies any history of suicide attempts in the past. 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 CHEMICAL DEPENDENCY HISTORY: as per HPI. FAMILY PSYCHIATRIC/SUBSTANCE USE HISTORY: denies SOCIAL HISTORY: Patient was born and raised in [facility]. He claims that he completed high school. He states that he served in the [employer] from 1991- 1995. He states that he is currently collects Social Security disability. He currently has 4 children. States he lives with a friend in a house. He claims that he served 16 years in half-way for neglecting to pay child support. MENTAL STATUS EXAM: General Appearance: Patient appears to be overweight, multiple tattoos, stated age is sleepy, pleasant, and cooperative. Patient appears to have fair hygiene and grooming wearing hospital gown with fair eye contact. Behavior: Patient is calmly lying in bed without any agitated behavior. cooperative Speech: Patient's speech is fluent and nonpressured. concrete Mood/Affect: Patient reports their mood is "ok", affect is congruent and constricted Suicidality/Homicidality: Patient denies having any suicidal or homicidal ideation intent or plan. Perceptions: Patient denies any visual hallucinations and denies any auditory hallucinations Though content/process: concrete, gaurded at times. logical. Memory and concentration: AOX2, does not know the specific date but does know the month and year, fair attention span. Cannot list days of week backwards. Judgment and insight: poor IMPRESSIONS: Delirium likely multiple etiologies including possible substance use versus seizure history of depressive disorder and anxiety disorder cannabis use disorder nicotine dependence PLAN: -At this time patient DOES NOT meet criteria for inpatient psychiatric admission. -Delirium precautions recommended with patient including - avoiding use of narcotics and CUSTOMER COUNTER REPRESENTATIVE sedatives, limit anticholinergic medications when possible, frequent re-orientation, minimize use of restraints, open window shades during the day and close them at night -Would recommend the following medication changes/additions: Restarted patient back on trazodone 100 mg daily at bedtime for insomnia/mood. Restarted Vistaril 25 mg every 6 hours when necessary for anxiety. Hold off on Remeron at this time. Continue Lamictal as prescribed. Discontinue Ativan and hold off on any benzodiazepines as this may exacerbate patient's confusion and delirium. -Ordered UDS to rule out substance use of any other substances. -fabric worker foreman to provide patient with outpatient mental health/psychiatry resources for appropriate follow up upon discharge -Strategic Account Executive spoke with patient about substance abuse and the harmful effects on medical and mental health, patient verbally understood and agreed. -Communicated plan to patient's nurse -Psychiatry will sign off at this time -Please contact with any questions. 08/07/21 12:09
[2021-08-07 12:35] LABS: Appearance,Urine Clear (Clear); Bilirubin,Urine Negative (Negative); Blood,Urine Negative (Negative); Color,Urine Yellow; Glucose,Urine (UA) 4+ (Negative); Ketones,Urine Negative (Negative); Leukocyte Esterase,Urine Negative (Negative); Nitrite,Urine Negative (Negative); PH, Urine 5.5 (5.0-8.0); Protein,Urine Trace (Negative); Specific Gravity,Urine 1.026 (1.001-1.035); Urobilinogen,Urine <2.0 mg/dL (<2.0)
[2021-08-07 13:00] LABS: Phencyclidine Screen,Urine Not Detected (NotDetected); Urn Cannabinoid Scrn Detected (NotDetected)
[2021-08-07 13:01] LABS: Amphetamine Screen,Urine Detected (NotDetected); Barbiturate Screen,Urine Not Detected (NotDetected); Benzodiazepines Screen,Urine Detected (NotDetected); Cocaine Screen,Urine Detected (NotDetected); Methadone Screen, Urine Not Detected (NotDetected); Opiate Screen,Urine Not Detected (NotDetected); Oxycodone Screen, Urine Not Detected (NotDetected); Tricyclic Antidepressant,Urine Not Detected (NotDetected)
--- NOTE | 2021-08-07 17:15 | XR ---
EXAMINATION TYPE: XR chest 2V DATE OF EXAM: 08/07/2021 COMPARISON: NONE HISTORY: Hypoxemia TECHNIQUE: 2 views FINDINGS: Heart and mediastinum are normal. Lungs are clear. Diaphragm is normal. Bony thorax is inta ct. IMPRESSION: Normal chest.
--- NOTE | 2021-08-07 18:12 | P.HPIM ---
History of Present Illness H&P Date: 08/07/21 Chief Complaint: Altered mental status 46-year-old male with significant altered mental status patient coming in for evaluation of altered mental status. EMS called by family in roommates is patient was acting more unresponsive and having difficulty communicating. Patient does not necessarily atelectasis on a normal basis or with EMS. He may have history of seizures but they weren't sure. No other significant medical history as far as drug or alcohol abuse. He does have high blood pressure Workup in ED CBC with differential is unremarkable Sodium was 139, creatinine is 1.02, BUN 21, initial serum glucose is 166, calcium 9.7, phosphorus is 3.7, magnesium is 1.7, AST of 25, ALT of 27. Serum lactic acid and initial one is 3.8 and is trending down Serum alcohol level was less than 10 Harper virus PCR was not detected. CT of the head is reported as negative CT scan of the brain. Maxillary sinusitis. Brain not change compared to the MRI scan of 07/2018. Personally reviewed the CT of the head and there is no acute or subacute ischemia and there is no intraparenchymal hemorrhage. Review of Systems REVIEW OF SYSTEMS: CONSTITUTIONAL: No fever, no malaise, no fatigue. HEENT: No recent visual problems or hearing problems. Denied any sore throat. CARDIOVASCULAR: No chest pain, orthopnea, PND, no palpitations, no syncope. PULMONARY: No shortness of breath, no cough, no hemoptysis. GASTROINTESTINAL: No diarrhea, no nausea, no vomiting, no abdominal pain. NEUROLOGICAL: No headaches, no weakness, no numbness. HEMATOLOGICAL: Denies any bleeding or petechiae. GENITOURINARY: Denies any burning micturition, frequency, or urgency. MUSCULOSKELETAL/RHEUMATOLOGICAL: Denies any joint pain, swelling, or any muscle pain. ENDOCRINE: Denies any polyuria or polydipsia. The rest of the 14-point review of systems is negative. 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) History of Any Multi-Drug Resistant Organisms: None Reported Past Surgical History: Adenoidectomy, Cholecystectomy, Hernia Repair, Tonsillectomy Past Anesthesia/Blood Transfusion Reactions: No Reported Reaction Past Psychological History: Anxiety, Depression, PTSD Past Alcohol Use History: None Reported Past Drug Use History: None Reported Additional Drug Use History / Comment(s): quite smoking marijuana 3.5 months ago - Past Family History Mother Family Medical History: Asthma, COPD, Diabetes Mellitus Medications and Allergies Home Medications Medication Instructions Recorded Confirmed Type Omeprazole 20 mg PO DAILY 04/04/15 08/07/21 History hydrOXYzine pamoate [hydrOXYzine 50 mg PO BID PRN 05/30/16 08/07/21 History PAMOATE] Cetirizine HCl 10 mg PO DAILY 01/24/17 08/07/21 History Acetaminophen Tab [Tylenol Tab] 1,000 mg PO Q6H PRN 08/07/21 08/07/21 History Albuterol Sulfate [Proair Hfa] 1 - 2 puff INHALATION DIRECTED 08/07/21 08/07/21 History PRN Baclofen [Lioresal] 10 mg PO DAILY 08/07/21 08/07/21 History Cholecalciferol [Vitamin D3 (25 25 mcg PO DAILY 08/07/21 08/07/21 History Mcg = 1000 Iu)] Diroximel Fumarate [Vumerity] 462 mg PO BID 08/07/21 08/07/21 History Fenofibrate [Lofibra] 160 mg PO DAILY 08/07/21 08/07/21 History Furosemide [Lasix] 20 mg PO DIRECTED 08/07/21 08/07/21 History Gabapentin 800 mg PO TID 08/07/21 08/07/21 History Glimepiride [Amaryl] 4 mg PO DIRECTED 08/07/21 08/07/21 History HYDROcodone/APAP 10-325MG [[place] 1 tab PO TID 08/07/21 08/07/21 History 10-325] Ibuprofen [Motrin] 800 mg PO Q6H PRN 08/07/21 08/07/21 History Losartan [Cozaar] 25 mg PO DIRECTED 08/07/21 08/07/21 History Metoprolol Tartrate [Lopressor] 25 mg PO DIRECTED 08/07/21 08/07/21 History Mirtazapine [Remeron] 45 mg PO HS 08/07/21 08/07/21 History Pravastatin Sodium [Pravachol] 40 mg PO DAILY 08/07/21 08/07/21 History hydrALAZINE HCL [Apresoline] 50 mg PO DAILY 08/07/21 08/07/21 History lamoTRIgine [LaMICtal] 150 mg PO DIRECTED 08/07/21 08/07/21 History metFORMIN HCL [Glucophage] 1,000 mg PO BID 08/07/21 08/07/21 History traZODone HCL [Desyrel] 100 mg PO HS 08/07/21 08/07/21 History Allergies Allergy/AdvReac Type Severity Reaction Status Date / Time Penicillins Allergy Severe Anaphylaxis Verified 08/07/21 09:04 Physical Exam Vitals: Vital Signs Temp Pulse Resp BP Pulse Ox 08/07/21 07:34 93 18 126/73 96 08/07/21 06:00 93 16 123/69 95 08/07/21 03:00 90 16 131/55 96 08/07/21 01:40 84 16 116/73 97 08/07/21 00:35 98.7 F 100 25 H 125/85 95 Intake and Output 08/06/21 08/07/21 08/07/21 22:59 06:59 14:59 Other: Weight 113.398 kg PHYSICAL EXAMINATION: GENERAL: The patient is alert and oriented x3, not in any acute distress. Well developed, well nourished. HEENT: Pupils are round and equally reacting to light. EOMI. No scleral icterus. No conjunctival pallor. Normocephalic, atraumatic. No pharyngeal erythema. No thyromegaly. CARDIOVASCULAR: S1 and S2 present. No murmurs, rubs, or gallops. PULMONARY: Chest is clear to auscultation, no wheezing or crackles. ABDOMEN: Soft, nontender, nondistended, normoactive bowel sounds. No palpable organomegaly. MUSCULOSKELETAL: No joint swelling or deformity. EXTREMITIES: No cyanosis, clubbing, or pedal edema. NEUROLOGICAL: Gross neurological examination did not reveal any focal deficits. SKIN: No rashes. Results CBC & Chem 7: 08/07/21 00:41 08/07/21 01:01 Labs: Abnormal Lab Results - Last 24 Hours (Table) 08/07/21 08/07/21 08/07/21 Range/Units 01:01 01:01 01:01 APTT 21.2 L (22.0-30.0) sec BUN 21 H (9-20) mg/dL Glucose 166 H (74-99) mg/dL Plasma Lactic Acid Sonny 3.8 H* (0.7-2.0) mmol/L 08/07/21 08/07/21 Range/Units 04:30 08:49 APTT (22.0-30.0) sec BUN (9-20) mg/dL Glucose (74-99) mg/dL Plasma Lactic Acid Sonny 2.3 H* 2.5 H* (0.7-2.0) mmol/L Assessment and Plan Assessment: 1. Altered mental status with elevated lactic acid levels; encephalopathy versus seizure disorder - Patient was given a loading dose of Keppra thousand milligrams in ED; neurology on board and recommending to resume home dose of Lamictal 150 mg twice a day and obtain Lamictal levels for further recommendations - MRI of the brain and C-spine is ordered along with EEG; TSH, vitamin B12, folate and ammonia levels are ordered - Patient will remain on seizure precautions and neuro checks every 4 hours 2. Possible exacerbation of MS - Patient received IV Solu-Medrol to 50 mg in ED; neurology recommending to hold off on Solu-Medrol. MRI of the brain and cervical spine is obtained to evaluate for demyelinating lesion and for any new lesions that might have developed 3. Mood disorder; psychiatry is consulted for recommendations on medications due to polypharmacy 4. Hypertension; we will resume home dose of losartan 25 mg daily and metoprolol 25 mg daily along with hydralazine 50 mg daily 5. Diabetes mellitus type 2; metformin thousand milligrams twice a day 6. Hyperlipidemia; Pravachol 40 mg daily DVT prophylaxis; SCDs/subcu heparin CODE STATUS; full code
[2021-08-07 18:21] LABS: Folate, Serum 9.2 ng/mL (4.40-31.00)
[2021-08-07] MEDS ORDERED: SODIUM CHLORIDE 0.9% 500 ML 500 ML IV ONE ×2 (19:58→22:26)
[2021-08-07] MEDS ORDERED: traZODone HCL 100 MG TAB PO SCH (21:00)
[2021-08-07 21:35] VITALS: RESP 20
[2021-08-08] MEDS: SODIUM CHLORIDE 0.9% 1,000 ML IV SCH (01:52)
[2021-08-08 05:04] LABS: Basophils % (A) 0 %; Eosinophils % (A) 0 %; HGB 13.6 gm/dL (13.0-17.5); Lymphocytes # (A) 0.9 k/uL (1.0-4.8); Lymphocytes % (A) 5 %; MCH 30.7 pg (25.0-35.0); MCHC 34.1 g/dL (31.0-37.0); Mean Platelet Volume 7.8; Monocytes # (A) 0.9 k/uL (0-1.0); Monocytes % (A) 6 %; Neutrophils # (A) 14.3 k/uL (1.3-7.7); Neutrophils % (A) 88 %; Platelet Count 259 k/uL (150-450); RBC 4.44 m/uL (4.30-5.90); RDW 13.1 % (11.5-15.5); WBC 16.2 k/uL (3.8-10.6)
[2021-08-08 05:47] VITALS: BP 145/78; PULSE 89; TEMP 98
[2021-08-08] MEDS: lamoTRIgine 25 MG TAB PO SCH ×2 (08:08→09:26)
[2021-08-08] MEDS: lamoTRIgine 100 MG TAB PO SCH (08:11)
[2021-08-08] MEDS ORDERED: LORazepam 2 MG/ML INJ IV STA (09:31)
[2021-08-08 10:50] LABS: ALT 22 U/L (10-49); AST 12 U/L (14-35); African American GFR (CKD) 93.6 (60.0-200.0); Albumin 4.2 g/dL (3.8-4.9); Albumin/Globulin Ratio 1.95 (1.60-3.17); Alkaline Phosphatase 60 U/L (41-126); BUN/Creat Ratio 20.65 Ratio (12.00-20.00); Blood Urea Nitrogen 22.3 mg/dL (9.0-27.0); Calcium 9.4 mg/dL (8.7-10.3); Carbon Dioxide 23.9 mmol/L (20.0-27.5); Chloride 109 mmol/L (96-109); Globulin 2.1 g/dL (1.6-3.3); Glucose 187 mg/dL (70-110); Magnesium 2.1 mg/dL (1.5-2.4); Non-African American GFR(CKD) 80.7 (60.0-200.0); Phosphorus 2.7 mg/dL (2.4-5.1); Potassium 4.8 mmol/L (3.5-5.5); Sodium 146 mmol/L (135-145); Total Bilirubin <0.20 mg/dL (0.30-1.20); Total Protein 6.3 g/dL (6.2-8.2)
== END 2021-08-08 10:06 | disposition home or self-care (01) | DRG 71 ==
LOC: SUPCPDRO 00:21 → EC 00:21 → 5NMEDONC 02:26
PROVIDERS: ADMIT Hospitalist; ATTEND Hospitalist
DX: G93.40 Encephalopathy, unspecified (principal); E87.2 Acidosis; G40.909 Epilepsy, unspecified, not intractable, without status epilepticus; G35 Multiple sclerosis; E11.42 Type 2 diabetes mellitus with diabetic polyneuropathy; Z79.84 Long term (current) use of oral hypoglycemic drugs; E78.5 Hyperlipidemia, unspecified; F32.A Depression, unspecified; F43.10 Post-traumatic stress disorder, unspecified; I10 Essential (primary) hypertension; F17.210 Nicotine dependence, cigarettes, uncomplicated; J32.0 Chronic maxillary sinusitis; Z20.822 Contact with and (suspected) exposure to COVID-19; F12.11 Cannabis abuse, in remission; Z79.82 Long term (current) use of aspirin; Z79.899 Other long term (current) drug therapy; Z82.5 Family history of asthma and other chronic lower respiratory diseases; Z83.3 Family history of diabetes mellitus; Z87.11 Personal history of peptic ulcer disease; Z90.89 Acquired absence of other organs; Z98.890 Other specified postprocedural states; Z90.49 Acquired absence of other specified parts of digestive tract; Z88.0 Allergy status to penicillin; Z65.3 Problems related to other legal circumstances
CPT/HCPCS: 36415; 70450; 71046; 80053; 80175; 80306; 80320; 81003; 82140; 82607; 82746; 83605; 83735; 83880; 84100; 84439; 84443; 84484; 85025; 85610; 85730; 87635; 93005; 96361; 96374; 96375; 99285

== ENCOUNTER 2021-08-08 14:00 | Observation (INO) | payer OTHER ==
--- NOTE | 2021-08-08 16:12 | ED ---
Psych HPI - General Chief Complaint: Psychiatric Symptoms Stated Complaint: psych Time Seen by Provider: 08/08/21 15:20 Source: patient, family, RN notes reviewed, old records reviewed Mode of arrival: wheelchair - History of Present Illness Initial Comments: 38-year-old male who was discharged yesterday AGAINST MEDICAL ADVICE after being admitted for possible seizure versus CVA who does have a history of MS. Absent posttraumatic stress disorder. He was brought in by friends for evaluation under petition due to uncooperative behavior he did not get a complete workup done when he looks her last time. He was combative toward family and toward his friends. And threatening apparently. He states she's not that way at this time. He does not want to stay in the hospital he states he does not want any further evaluation. No reports of any trauma fevers chills nausea vomiting sweats no alcohol he states he took the wrong medication 2 days ago when he was having trouble with speech and Confusion. Is to limit those systems other medication. No other complaints or modifying factors at this time MD Complaint: other - Related Data Home Medications Medication Instructions Recorded Confirmed Omeprazole 20 mg PO DAILY 04/04/15 08/08/21 hydrOXYzine pamoate [hydrOXYzine 50 mg PO BID PRN 05/30/16 08/08/21 PAMOATE] Cetirizine HCl 10 mg PO DAILY 01/24/17 08/08/21 Acetaminophen Tab [Tylenol Tab] 1,000 mg PO Q6H PRN 08/07/21 08/08/21 Albuterol Sulfate [Proair Hfa] 1 - 2 puff INHALATION DIRECTED 08/07/21 08/08/21 PRN Baclofen [Lioresal] 10 mg PO DAILY 08/07/21 08/08/21 Cholecalciferol [Vitamin D3 (25 25 mcg PO DAILY 08/07/21 08/08/21 Mcg = 1000 Iu)] Diroximel Fumarate [Vumerity] 462 mg PO BID 08/07/21 08/08/21 Fenofibrate [Lofibra] 160 mg PO DAILY 08/07/21 08/08/21 Furosemide [Lasix] 20 mg PO DIRECTED 08/07/21 08/08/21 Gabapentin 800 mg PO TID 08/07/21 08/08/21 Glimepiride [Amaryl] 4 mg PO DIRECTED 08/07/21 08/08/21 HYDROcodone/APAP 10-325MG [[place] 1 tab PO TID 08/07/21 08/08/21 10-325] Ibuprofen [Motrin] 800 mg PO Q6H PRN 08/07/21 08/08/21 Losartan [Cozaar] 25 mg PO DIRECTED 08/07/21 08/08/21 Metoprolol Tartrate [Lopressor] 25 mg PO DIRECTED 08/07/21 08/08/21 Mirtazapine [Remeron] 45 mg PO HS 08/07/21 08/08/21 Pravastatin Sodium [Pravachol] 40 mg PO DAILY 08/07/21 08/08/21 hydrALAZINE HCL [Apresoline] 50 mg PO DAILY 08/07/21 08/08/21 lamoTRIgine [LaMICtal] 150 mg PO DIRECTED 08/07/21 08/08/21 metFORMIN HCL [Glucophage] 1,000 mg PO BID 08/07/21 08/08/21 traZODone HCL [Desyrel] 100 mg PO HS 08/07/21 08/08/21 Allergies Allergy/AdvReac Type Severity Reaction Status Date / Time Penicillins Allergy Severe Anaphylaxis Verified 08/08/21 15:59 Review of Systems ROS Statement: Those systems with pertinent positive or pertinent negative responses have been documented in the HPI. ROS Other: All systems not noted in ROS Statement are negative. 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) History of Any Multi-Drug Resistant Organisms: None Reported Date of last positivie culture/infection: 11/2020 MDRO Source:: right leg Past Surgical History: Adenoidectomy, Cholecystectomy, Hernia Repair, Tonsillectomy Past Anesthesia/Blood Transfusion Reactions: No Reported Reaction Past Psychological History: Anxiety, Depression, PTSD Smoking Status: Current every day smoker Past Alcohol Use History: None Reported Past Drug Use History: None Reported - Past Family History Mother Family Medical History: Asthma, COPD, Diabetes Mellitus General Exam - General Exam Comments Initial Comments: This is a well-developed well-nourished awake alert male Limitations: no limitations General appearance: alert, in no apparent distress Head exam: Present: atraumatic, normocephalic, normal inspection Eye exam: Present: normal appearance, PERRL, EOMI. Absent: scleral icterus, conjunctival injection, periorbital swelling ENT exam: Present: normal exam, mucous membranes moist Neck exam: Present: normal inspection. Absent: tenderness, meningismus, lymphadenopathy Respiratory exam: Present: normal lung sounds bilaterally. Absent: respiratory distress, wheezes, rales, rhonchi, stridor Cardiovascular Exam: Present: normal rhythm, tachycardia, normal heart sounds. Absent: systolic murmur, diastolic murmur, rubs, gallop, clicks GI/Abdominal exam: Present: soft, normal bowel sounds. Absent: distended, tenderness, guarding, rebound, rigid Extremities exam: Present: normal inspection, full ROM, normal capillary refill. Absent: tenderness, pedal edema, joint swelling, calf tenderness Back exam: Present: normal inspection Neurological exam: Present: alert, oriented X3, CN II-XII intact Psychiatric exam: Present: anxious Skin exam: Present: warm, dry, intact, normal color. Absent: rash Course Vital Signs 08/08/21 15:09 Temperature 98.2 F Pulse Rate 111 H Respiratory 18 Rate Blood Pressure 166/89 O2 Sat by Pulse 97 Oximetry Medical Decision Making - Medical Decision Making I did discuss findings with the patient with the patient's permission as well as with Dr. Carrasco and EPS service patient will be readmitted for further evaluation and IV hydration. - Lab Data Result diagrams: 08/08/21 16:15 08/08/21 16:15 Lab Results 08/08/21 08/08/21 08/08/21 Range/Units 16:15 16:15 16:15 WBC 17.0 H (3.8-10.6) k/uL RBC 4.72 (4.30-5.90) m/uL Hgb 14.4 (13.0-17.5) gm/dL Hct 41.6 (39.0-53.0) % MCV 88.2 (80.0-100.0) fL MCH 30.5 (25.0-35.0) pg MCHC 34.6 (31.0-37.0) g/dL RDW 13.2 (11.5-15.5) % Plt Count 266 (150-450) k/uL MPV 7.5 Neutrophils % 83 % Lymphocytes % 9 % Monocytes % 7 % Eosinophils % 1 % Basophils % 0 % Neutrophils # 14.1 H (1.3-7.7) k/uL Lymphocytes # 1.5 (1.0-4.8) k/uL Monocytes # 1.1 H (0-1.0) k/uL Eosinophils # 0.1 (0-0.7) k/uL Basophils # 0.0 (0-0.2) k/uL Sodium 142 (137-145) mmol/L Potassium 4.0 (3.5-5.1) mmol/L Chloride 109 H (98-107) mmol/L Carbon Dioxide 23 (22-30) mmol/L Anion Gap 10 mmol/L BUN 24 H (9-20) mg/dL Creatinine 0.93 (0.66-1.25) mg/dL Est GFR (CKD-EPI)AfAm >90 (>60 ml/min/1.73 sqM) Est GFR (CKD-EPI)NonAf >90 (>60 ml/min/1.73 sqM) Glucose 143 H (74-99) mg/dL Plasma Lactic Acid Sonny (0.7-2.0) mmol/L Calcium 9.6 (8.4-10.2) mg/dL Magnesium 2.1 (1.6-2.3) mg/dL Total Bilirubin 0.3 (0.2-1.3) mg/dL AST 26 (17-59) U/L ALT 26 (4-49) U/L Alkaline Phosphatase 64 (38-126) U/L Ammonia (<30) umol/L Creatine Kinase 122 (55-170) U/L Total Protein 7.3 (6.3-8.2) g/dL Albumin 4.3 (3.5-5.0) g/dL Lipase 54 (23-300) U/L Urine Opiates Screen Not Detected (NotDetected) Ur Oxycodone Screen Not Detected (NotDetected) Urine Methadone Screen Not Detected (NotDetected) Ur Propoxyphene Screen Not Detected (NotDetected) Ur Barbiturates Screen Not Detected (NotDetected) U Tricyclic Antidepress Not Detected (NotDetected) Ur Phencyclidine Scrn Not Detected (NotDetected) Ur Amphetamines Screen Detected H (NotDetected) U Methamphetamines Scrn Detected H (NotDetected) U Benzodiazepines Scrn Detected H (NotDetected) Urine Cocaine Screen Detected H (NotDetected) U Marijuana (THC) Screen Detected H (NotDetected) 08/08/21 Range/Units 16:15 WBC (3.8-10.6) k/uL RBC (4.30-5.90) m/uL Hgb (13.0-17.5) gm/dL Hct (39.0-53.0) % MCV (80.0-100.0) fL MCH (25.0-35.0) pg MCHC (31.0-37.0) g/dL RDW (11.5-15.5) % Plt Count (150-450) k/uL MPV Neutrophils % % Lymphocytes % % Monocytes % % Eosinophils % % Basophils % % Neutrophils # (1.3-7.7) k/uL Lymphocytes # (1.0-4.8) k/uL Monocytes # (0-1.0) k/uL Eosinophils # (0-0.7) k/uL Basophils # (0-0.2) k/uL Sodium (137-145) mmol/L Potassium (3.5-5.1) mmol/L Chloride (98-107) mmol/L Carbon Dioxide (22-30) mmol/L Anion Gap mmol/L BUN (9-20) mg/dL Creatinine (0.66-1.25) mg/dL Est GFR (CKD-EPI)AfAm (>60 ml/min/1.73 sqM) Est GFR (CKD-EPI)NonAf (>60 ml/min/1.73 sqM) Glucose (74-99) mg/dL Plasma Lactic Acid Sonny 2.0 (0.7-2.0) mmol/L Calcium (8.4-10.2) mg/dL Magnesium (1.6-2.3) mg/dL Total Bilirubin (0.2-1.3) mg/dL AST (17-59) U/L ALT (4-49) U/L Alkaline Phosphatase (38-126) U/L Ammonia <9 (<30) umol/L Creatine Kinase (55-170) U/L Total Protein (6.3-8.2) g/dL Albumin (3.5-5.0) g/dL Lipase (23-300) U/L Urine Opiates Screen (NotDetected) Ur Oxycodone Screen (NotDetected) Urine Methadone Screen (NotDetected) Ur Propoxyphene Screen (NotDetected) Ur Barbiturates Screen (NotDetected) U Tricyclic Antidepress (NotDetected) Ur Phencyclidine Scrn (NotDetected) Ur Amphetamines Screen (NotDetected) U Methamphetamines Scrn (NotDetected) U Benzodiazepines Scrn (NotDetected) Urine Cocaine Screen (NotDetected) U Marijuana (THC) Screen (NotDetected) Disposition Clinical Impression: Mental status alteration, Dehydration, Acute prerenal azotemia, Leukocytosis, Substance abuse Disposition: ADMITTED IP TO THIS [facility] Condition: Fair Referrals: None,Stated [Primary Care Provider] - 1-2 days
[2021-08-08 16:28] LABS: Basophils % (A) 0 %; Eosinophils # (A) 0.1 k/uL (0-0.7); Eosinophils % (A) 1 %; HCT 41.6 % (39.0-53.0); HGB 14.4 gm/dL (13.0-17.5); Lymphocytes # (A) 1.5 k/uL (1.0-4.8); Lymphocytes % (A) 9 %; MCH 30.5 pg (25.0-35.0); MCHC 34.6 g/dL (31.0-37.0); MCV 88.2 fL (80.0-100.0); Mean Platelet Volume 7.5; Monocytes # (A) 1.1 k/uL (0-1.0); Monocytes % (A) 7 %; Neutrophils # (A) 14.1 k/uL (1.3-7.7); Neutrophils % (A) 83 %; Platelet Count 266 k/uL (150-450); RBC 4.72 m/uL (4.30-5.90); RDW 13.2 % (11.5-15.5)
[2021-08-08 16:38] LABS: ALT 26 U/L (4-49); AST 26 U/L (17-59); African American GFR (CKD) >90 (>60 ml/min/1.73 sqM); Albumin 4.3 g/dL (3.5-5.0); Alkaline Phosphatase 64 U/L (38-126); Anion Gap 10 mmol/L; Blood Urea Nitrogen 24 mg/dL (9-20); Calcium 9.6 mg/dL (8.4-10.2); Carbon Dioxide 23 mmol/L (22-30); Chloride 109 mmol/L (98-107); Creatine Kinase 122 U/L (55-170); Glucose 143 mg/dL (74-99); Lipase 54 U/L (23-300); Magnesium 2.1 mg/dL (1.6-2.3); Non-African American GFR(CKD) >90 (>60 ml/min/1.73 sqM); Sodium 142 mmol/L (137-145); Total Bilirubin 0.3 mg/dL (0.2-1.3); Total Protein 7.3 g/dL (6.3-8.2)
[2021-08-08 16:57] LABS: Amphetamine Screen,Urine Detected (NotDetected); Barbiturate Screen,Urine Not Detected (NotDetected); Benzodiazepines Screen,Urine Detected (NotDetected); Cocaine Screen,Urine Detected (NotDetected); Methadone Screen, Urine Not Detected (NotDetected); Opiate Screen,Urine Not Detected (NotDetected); Oxycodone Screen, Urine Not Detected (NotDetected); Phencyclidine Screen,Urine Not Detected (NotDetected); Tricyclic Antidepressant,Urine Not Detected (NotDetected); Urn Cannabinoid Scrn Detected (NotDetected)
[2021-08-08] MEDS ORDERED: NALOXONE 0.4 MG/ML 1 ML VIAL IV PRN (19:26)
[2021-08-08] MEDS ORDERED: ACETAMINOPHEN TAB 325 MG TAB PO PRN (19:26)
[2021-08-08] MEDS ORDERED: ACETAMINOPHEN TAB 500 MG TAB PO PRN (19:29)
[2021-08-08] MEDS ORDERED: IBUPROFEN 800 MG TAB PO PRN (19:29)
[2021-08-08] MEDS ORDERED: ALBUTEROL NEBULIZED 2.5 MG/3 ML INHALATION PRN (19:29)
[2021-08-08] MEDS ORDERED: hydrOXYzine pamoate 25 MG CAP PO PRN (19:29)
[2021-08-08] MEDS ORDERED: LOSARTAN 25 MG TAB PO SCH (19:30)
[2021-08-08] MEDS ORDERED: FUROSEMIDE 20 MG TAB PO SCH (19:30)
[2021-08-08] MEDS ORDERED: METOPROLOL TARTRATE 25 MG TAB PO SCH (19:30)
[2021-08-08] MEDS ORDERED: LAMOTRIGINE 150 MG PO SCH (19:30)
[2021-08-08] MEDS ORDERED: traZODone HCL 100 MG TAB PO SCH (21:00)
[2021-08-08] MEDS: metFORMIN 500 MG TAB PO SCH (21:56)
[2021-08-08] MEDS: DIROXIMEL FUMARATE 231 MG PO SCH (21:58)
[2021-08-09] MEDS: GABAPENTIN 400 MG CAP PO SCH ×4 (00:47→20:00)
[2021-08-09] MEDS: HYDROcodone/APAP 10-325MG 1 EACH TAB PO SCH ×4 (00:48→20:00)
[2021-08-09] MEDS: MIRTAZAPINE 45 MG TABLET PO SCH ×2 (01:18→20:56)
[2021-08-09] MEDS: SODIUM CHLORIDE 0.9% 1,000 ML IV SCH ×4 (06:28→15:49)
[2021-08-09] MEDS ORDERED: LORATADINE 10 MG TAB PO SCH (09:00)
[2021-08-09] MEDS ORDERED: BACLOFEN 10 MG TAB PO SCH (09:00)
[2021-08-09] MEDS: PRAVASTATIN SODIUM 40 MG TAB PO SCH (09:07)
[2021-08-09] MEDS: PANTOPRAZOLE 40 MG TABLET PO SCH (09:07)
[2021-08-09] MEDS: FENOFIBRATE 160 MG TAB PO SCH (09:07)
[2021-08-09] MEDS: metFORMIN 500 MG TAB PO SCH ×2 (09:08→20:00)
[2021-08-09] MEDS: hydrALAZINE HCL 50 MG TAB PO SCH (09:08)
[2021-08-09] MEDS ORDERED: ALBUTEROL HFA INHALER INHALATION PRN (09:28)
[2021-08-09] MEDS: DIROXIMEL FUMARATE 231 MG PO SCH ×2 (10:00→22:28)
[2021-08-09] MEDS: CHOLECALCIFEROL 25 MCG (1000 IU) TABLET PO SCH (10:30)
[2021-08-09] MEDS ORDERED: lamoTRIgine 100 MG TAB PO SCH (11:00)
[2021-08-09] MEDS: GLIMEPIRIDE 4 MG TAB PO SCH (11:25)
[2021-08-09] MEDS: FUROSEMIDE 20 MG TAB PO SCH (11:26)
[2021-08-09] MEDS: LOSARTAN 25 MG TAB PO SCH (11:28)
[2021-08-09] MEDS: METOPROLOL TARTRATE 25 MG TAB PO SCH ×2 (11:28→20:01)
[2021-08-09 12:02] LABS: Glucose,Whole Blood 213 mg/dL (75-99)
[2021-08-09] MEDS ORDERED: BACLOFEN 10 MG TAB PO PRN (12:29)
--- NOTE | 2021-08-09 13:01 | P.HPIM ---
History of Present Illness Patient was a 46-year-old male came in because of flank operative behavior at home apparently. Although patient is very cooperative when I evaluated him patient is clinically doing well. Patient was petitioned by the family. Patie nt is found to have elevated Lamictal level which is being held at this time. Patient was admitted recently and left AGAINST MEDICAL ADVICE couple days ago. Patient does have a urine drug screen that is positive for multiple medications. Patient denied any fever chills nausea vomiting abdominal pain dysuria. Patient doesn't have any symptoms of cold but is found to have positive Covid patient is not requiring any oxygen patient is not vaccinated REVIEW OF SYSTEMS: CONSTITUTIONAL: No fever, no malaise, no fatigue. HEENT: No recent visual problems or hearing problems. Denied any sore throat. CARDIOVASCULAR: No chest pain, orthopnea, PND, no palpitations, no syncope. PULMONARY: No shortness of breath, no cough, no hemoptysis. GASTROINTESTINAL: No diarrhea, no nausea, no vomiting, no abdominal pain. NEUROLOGICAL: No headaches, no weakness, no numbness. HEMATOLOGICAL: Denies any bleeding or petechiae. GENITOURINARY: Denies any burning micturition, frequency, or urgency. MUSCULOSKELETAL/RHEUMATOLOGICAL: Denies any joint pain, swelling, or any muscle pain. ENDOCRINE: Denies any polyuria or polydipsia. The rest of the 14-point review of systems is negative. PHYSICAL EXAMINATION: GENERAL: The patient is alert and oriented x3, not in any acute distress. Well developed, well nourished. HEENT: Pupils are round and equally reacting to light. EOMI. No scleral icterus. No conjunctival pallor. Normocephalic, atraumatic. No pharyngeal erythema. No thyromegaly. CARDIOVASCULAR: S1 and S2 present. No murmurs, rubs, or gallops. PULMONARY: Chest is clear to auscultation, no wheezing or crackles. ABDOMEN: Soft, nontender, nondistended, normoactive bowel sounds. No palpable organomegaly. MUSCULOSKELETAL: No joint swelling or deformity. EXTREMITIES: No cyanosis, clubbing, or pedal edema. NEUROLOGICAL: Gross neurological examination did not reveal any focal deficits. SKIN: No rashes. Assessment and plan -Episodes of agitation: Patient is very pleasant at this time psychiatry will evaluate the patient if cleared by psychiatric patient will be discharged today -Incidental finding of elevated Lamictal level: We may need to decrease the Lamictal dose. We'll get the opinion of neurology, patient was undergoing workup for seizures during his last hospitalization it appears like there is was no clear evidence of seizure patient was confused at the time which appears to be secondary to mostly his medications and drug use. If cleared by neurology and psychiatry patient will be discharged. -Covid 19 infection: Supportive care and code vitamins -PTSD and bipolar disorder -History of multiple sclerosis without any acute exacerbation -Hypertension -Type 2 diabetes mellitus for which patient is on metformin which will be continued -Hyperlipidemia -leukocytosis: No clinical evidence of infection at this time, reactive. DVT prophylaxis: Early ambulation. 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 Past Drug Use History: None Reported Additional Drug Use History / Comment(s): last used marijuana on Monday - Past Family History Mother Family Medical History: Asthma, COPD, Diabetes Mellitus Medications and Allergies Home Medications Medication Instructions Recorded Confirmed Type Omeprazole 20 mg PO DAILY 04/04/15 08/08/21 History hydrOXYzine pamoate [hydrOXYzine 50 mg PO BID PRN 05/30/16 08/08/21 History PAMOATE] Cetirizine HCl 10 mg PO DAILY 01/24/17 08/08/21 History Acetaminophen Tab [Tylenol Tab] 1,000 mg PO Q6H PRN 08/07/21 08/08/21 History Albuterol Sulfate [Proair Hfa] 2 puff INHALATION RT-QID PRN 08/07/21 08/09/21 History Baclofen [Lioresal] 10 mg PO DAILY 08/07/21 08/08/21 History Cholecalciferol [Vitamin D3 (25 25 mcg PO DAILY 08/07/21 08/08/21 History Mcg = 1000 Iu)] Diroximel Fumarate [Vumerity] 462 mg PO BID 08/07/21 08/09/21 History Fenofibrate [Lofibra] 160 mg PO DAILY 08/07/21 08/08/21 History Furosemide [Lasix] 20 mg PO DAILY 08/07/21 08/09/21 History Gabapentin 800 mg PO TID 08/07/21 08/08/21 History Glimepiride [Amaryl] 4 mg PO DAILY 08/07/21 08/09/21 History HYDROcodone/APAP 10-325MG [[place] 1 tab PO TID 08/07/21 08/08/21 History 10-325] Ibuprofen [Motrin] 800 mg PO Q6H PRN 08/07/21 08/08/21 History Metoprolol Tartrate [Lopressor] 25 mg PO BID 08/07/21 08/09/21 History Mirtazapine [Remeron] 45 mg PO HS 08/07/21 08/08/21 History Pravastatin Sodium [Pravachol] 40 mg PO DAILY 08/07/21 08/08/21 History hydrALAZINE HCL [Apresoline] 50 mg PO DAILY 08/07/21 08/08/21 History metFORMIN HCL [Glucophage] 1,000 mg PO BID 08/07/21 08/08/21 History traZODone HCL [Desyrel] 100 mg PO HS 08/07/21 08/08/21 History Aspirin EC [Ecotrin Low Dose] 81 mg PO DAILY 08/09/21 08/09/21 History Fluticasone Nasal [place] [Flonase 2 spray EA NOSTRIL DAILY PRN 08/09/21 08/09/21 History Nasal [place]] Krill/Om-3/Dha/Epa/Phospho/Ast 2 cap PO HS 08/09/21 08/09/21 History [[place]-3 Krill Oil 300 mg Sfgl] Losartan Potassium [Cozaar] 25 mg PO DAILY 08/09/21 08/09/21 History Multivit-Min/FA/Lycopen/Lutein 1 tab PO DAILY 08/09/21 08/09/21 History [Centrum Silver Tablet] lamoTRIgine 150 mg PO BID 08/09/21 08/09/21 History Allergies Allergy/AdvReac Type Severity Reaction Status Date / Time Penicillins Allergy Severe Anaphylaxis Verified 08/08/21 15:59 Physical Exam Vitals: Vital Signs Temp Pulse Pulse Resp BP BP Pulse Ox 08/09/21 10:34 97.9 F 93 17 143/85 96 08/09/21 10:13 98.5 F 93 18 143/85 96 08/09/21 09:44 89 16 148/84 98 08/09/21 06:30 98.0 F 97 18 138/82 97 08/09/21 00:51 92 16 136/80 97 08/08/21 20:11 97.6 F 91 18 144/84 98 08/08/21 15:09 98.2 F 111 H 18 166/89 97 Intake and Output 08/08/21 08/09/21 08/09/21 22:59 06:59 14:59 Other: Weight 90.718 kg 90.718 kg Results CBC & Chem 7: 08/08/21 16:15 08/08/21 16:15 Labs: Abnormal Lab Results - Last 24 Hours (Table) 08/08/21 08/08/21 08/08/21 Range/Units 16:15 16:15 16:15 WBC 17.0 H (3.8-10.6) k/uL Neutrophils # 14.1 H (1.3-7.7) k/uL Monocytes # 1.1 H (0-1.0) k/uL Chloride 109 H (98-107) mmol/L BUN 24 H (9-20) mg/dL Glucose 143 H (74-99) mg/dL POC Glucose (mg/dL) (75-99) mg/dL Ur Amphetamines Screen Detected H (NotDetected) U Methamphetamines Scrn Detected H (NotDetected) U Benzodiazepines Scrn Detected H (NotDetected) Urine Cocaine Screen Detected H (NotDetected) U Marijuana (THC) Screen Detected H (NotDetected) Coronavirus (PCR) (Not Detectd) 08/08/21 08/09/21 Range/Units 20:12 12:00 WBC (3.8-10.6) k/uL Neutrophils # (1.3-7.7) k/uL Monocytes # (0-1.0) k/uL Chloride (98-107) mmol/L BUN (9-20) mg/dL Glucose (74-99) mg/dL POC Glucose (mg/dL) 213 H (75-99) mg/dL Ur Amphetamines Screen (NotDetected) U Methamphetamines Scrn (NotDetected) U Benzodiazepines Scrn (NotDetected) Urine Cocaine Screen (NotDetected) U Marijuana (THC) Screen (NotDetected) Coronavirus (PCR) Detected A (Not Detectd) Thrombosis Risk Factor Assmnt - Choose All That Apply Each Factor Represents 1 point: Age 41-60 years, Obesity (BMI >25) Thrombosis Risk Factor Assessment Total Risk Factor Score: 2 Thrombosis Risk Factor Assessment Level: Low Risk
--- NOTE | 2021-08-09 13:27 | P.CN ---
Psychiatric Consult - . Consult date: 08/09/21 Consult:: 08/09/21 12:47 IDENTIFYING DATA: This patient is a 46-year-old male, who currently lives with his friend in the house has 4 kids and is . He is collecting Social Security disability. REASON FOR REFERRAL: Psychiatry was consulted for "mental status changes" HISTORY OF PRESENT ILLNESS: The patient presented to the hospital with altered mental status via EMS a few days ago and ended up signing himself out AMA before he underwent more neuro testing. Patient was seen for consult on the previous admissionlt on the previous admission and was believed to be likely delirious secondary to possible substance use versus seizure disorder. Patient did have a history of depressive disorder and anxiety as well. Patient apparently had left the hospital and was found acting bizarre and apparently was petitioned by his r oommate and picked up by the police and brought back to the hospital. Patient was found on this admission to have an elevation in his white blood cell count and also absolute neutrophil count and his UDS was positive for amphetamines, methamphetamine, benzodiazepines, cocaine and marijuana. Patient was admitted to the medical floors after being found to be covid positive. Patient again was seen by ad copy writer today for psychiatric consultation for "mental status changes". Patients nurse states that he has been fairly cooperative and no behavior issues. Patient was awake and agreeable to speak to ad copy writer today at the bedside. He spoke about "accidentally taking too much Lamictal" and states that he took around 1-2 extra pills. He states that he was confused and was supposed to take his other medications. He began listing off his other medications. He is fairly guarded and evasive at times and rambled. He appeared to have poor reality testing. Poor concentration. He was attempting to cooperate as much as he could during the interview. He is denying any depression today or anxiety. He was fairly focused on being discharged. She claims that his dog ate his pill container. He claims that he went back home and that his roommate petitioned him to come to the hospital because "I needed to get my medications straightened out". He is denying any drug use despite being confronted about his urinary drug screen results. He states that his sleep is fair and appetite is fair. He is not responding to any internal stimuli. he does not know today's fall date. He does know the current president. He knows that he is in [place] in a hospital. He knows his full name. He was not able to list the days of the week backwards correctly. when asked why he signed out AMA last he states that "I thought that they were trying to drug me" and claims that they were not explaining At this time patient denies any suicidal or homical ideations, intent or plan. Patient denies any auditory, visual hallucinations. He is endorsing some paranoia towards hospital staff members today.. Patients admits to using marijuana daily and cigarettes. He denies any other recreational drug use. PAST PSYCHIATRIC HISTORY: Patient has a a history of cannabis use pressured and anxiety. He claims that he was on trazodone Vistaril Remeron and Lamictal in the past. Patient denies any previous psychiatric hospitalizations. Patient denies any psychiatric outpatient follow-up. He states that he currently follows up with his PCP for his medications. Patient denies any history of suicide attempts in the past. 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 CHEMICAL DEPENDENCY HISTORY: as per HPI. FAMILY PSYCHIATRIC/SUBSTANCE USE HISTORY: denies SOCIAL HISTORY: Patient was born and raised in [facility]. He claims that he completed high school. He states that he served in the [employer] from 1991- 1995. He states that he is currently collects Social Security disability. He currently has 4 children. States he lives with a friend in a house. He claims that he served 16 years in intermediate for neglecting to pay child support. MENTAL STATUS EXAM: General Appearance: Patient appears to be overweight, multiple tattoos, stated age is alert, pleasant, and gaurded/evasive. Patient appears to have fair hygiene and grooming wearing hospital gown with fair eye contact. Behavior: Patient is calmly lying in bed without any agitated behavior. evasive Speech: Patient's speech is fluent and nonpressured. concrete Mood/Affect: Patient reports their mood is "fine", affect is congruent and constricted Suicidality/Homicidality: Patient denies having any suicidal or homicidal ideation intent or plan. Perceptions: Patient denies any visual hallucinations and denies any auditory hallucinations Though content/process: concrete, gaurded at times. logical. Memory and concentration: AOX2, does not know the specific date but does know the month and year, fair attention span. Cannot list days of week backwards. Judgment and insight: poor IMPRESSIONS: Delirium vs. acute psychotic disorder history of depressive disorder and anxiety disorder cannabis use disorder cocaine abuse methamphetamine use disorder nicotine dependence PLAN: -At this time patient DOES NOT meet criteria for inpatient psychiatric admission. Patient does have fairly poor insight into his condition and is fairly focused on discharge however is paranoid and delusional. -Delirium precautions recommended with patient including - avoiding use of narcotics and CARE ASST sedatives, limit anticholinergic medications when possible, frequent re-orientation, minimize use of restraints, open window shades during the day and close them at night -Would recommend the following medication changes/additions: decreased trazodone 50 mg daily at bedtime for insomnia/mood. continue with Remeron 45 mg qhs for insomnia/mood. Continue Lamictal as prescribed. Avoid Ativan and hold off on any benzodiazepines as this may exacerbate patient's confusion and delirium. Added Invega 3 mg qhs for psychosis. -spray worker to provide patient with outpatient mental health/psychiatry resources for appropriate follow up upon discharge -Director Of Medicare spoke with patient about substance abuse and the harmful effects on medical and mental health, patient verbally understood and agreed. -Psychiatry will continue to follow along -Please contact with any questions.
[2021-08-09] MEDS: ASPIRIN 81 MG PO SCH (15:49)
--- NOTE | 2021-08-09 16:56 | P.CNNES ---
History of Present Illness Consult date: 08/09/21 Requesting physician: Dane Rasmussen Reason for Consult: Seizures History of Present Illness: Patient is a 46-year-old male with history of multiple sclerosis, seizure (long time ago, PTSD, peripheral neuropathy, hypertension, anxiety and depression, who came to the hospital initially on 08/07/2021 for altered mental status. Patient was having difficulty communicating. Patient states that he may have accidentally taken extra dose of Lamictal which made him confused. Patient resides with his two friends and denies having any seizure-like activity. His last seizure was about 8-10 years ago. Patient has been on Lamictal 150 mg twice a day for mood disorder as well as for seizures. Patient last refill of Lamictal was in February 2021 with 2 months refill, and did not subsequently refilled his seizure medication. Patient was taking Keppra in the past, but has discontinued long time ago. He also has history of relapsing remitting MS and follows up with Dr. Orozco. Patient was evaluated by Dr. Cesar Prather on 08/07/2021. Lamictal was resumed and EEG was ordered and an MRI of the brain and cervical spine with and without contrast. Patient's urine was positive for amphetamines, methamphetamines, benzodiazepine, cocaine and marijuana. Patient apparently signed out AGAINST MEDICAL ADVICE. Patient now came back to the hospital yesterday on 08/08/2021 at 2 PM for possible seizure versus CVA. Ther e was report of some having speech difficulty and confusion. No other focal symptoms. No visual problems. No facial droop or focal weakness. Patient was petitioned by friends for evaluation due to uncooperative behavior. He was combative towards family and towards his friends. He was threatening. Vital signs on arrival blood pressure 166/89, pulse rate 111, temperature 98.2. Patient's blood test shows WBC 17.0, hemoglobin 14.4, platelets 266. Electrolytes are normal, BUN 24 creatinine 0.93. Hepatic panel is normal, CK normal. Urine drug screen is now again positive for amphetamine, methamphetamine, benzodiazepine, cocaine and marijuana. Patient's blood test now positive coronavirus PCR. Patient denies any drug use. He admits to using marijuana. He admits to eating edibles including cookies and Brownies, but denies any use of cocaine. He states that he takes [place] and he would not be able to get prescription of [place], if he is using drugs. Patient never received vaccination for coronavirus. He states he was diagnosed with MS for last 10-12 years. He used to be on Betaseron, but then started taking Tecfideraa which worked very well for MS. About a year ago because of insurance reason, it was switched to Vumerity, which he is still taking. Patient admits to smoking one pack per day for last 31 years. He quit drinking before he was diagnosed with MS. Patient's current home medications include omeprazole, hydroxyzine 50 mg twice a day when necessary, Pravachol 40 mg, vitamin D, Vumerity to 31 mg capsule, 2 tablet twice a day. Remeron 45 mg at bedtime, gabapentin intermittent 3 times a day, fenofibrate 160 mg, Amaryl, metformin, [place] 10/325 mg 3 times a day, hydralazine, baclofen 10 mg daily, trazodone 100 mg at bedtime, metoprolol, Lasix, aspirin 81 mg, Lamictal 150 mA twice a day and losartan 25 mg. patient states that he used to take aspirin, but has stopped taking aspirin a while ago. He claims that he had history of seizure about 12 years ago, none since then. He takes Lamictal mainly for mood disorder. Review of Systems As above in detail. All other 14 point of review of systems reviewed and noncontributory. 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 Past Drug Use History: None Reported Additional Drug Use History / Comment(s): last used marijuana on Monday - Past Family History Mother Family Medical History: Asthma, COPD, Diabetes Mellitus Medications and Allergies Home Medications Medication Instructions Recorded Confirmed Type Omeprazole 20 mg PO DAILY 04/04/15 08/08/21 History hydrOXYzine pamoate [hydrOXYzine 50 mg PO BID PRN 05/30/16 08/08/21 History PAMOATE] Cetirizine HCl 10 mg PO DAILY 01/24/17 08/08/21 History Acetaminophen Tab [Tylenol Tab] 1,000 mg PO Q6H PRN 08/07/21 08/08/21 History Albuterol Sulfate [Proair Hfa] 2 puff INHALATION RT-QID PRN 08/07/21 08/09/21 History Baclofen [Lioresal] 10 mg PO DAILY 08/07/21 08/08/21 History Cholecalciferol [Vitamin D3 (25 25 mcg PO DAILY 08/07/21 08/08/21 History Mcg = 1000 Iu)] Diroximel Fumarate [Vumerity] 462 mg PO BID 08/07/21 08/09/21 History Fenofibrate [Lofibra] 160 mg PO DAILY 08/07/21 08/08/21 History Furosemide [Lasix] 20 mg PO DAILY 08/07/21 08/09/21 History Gabapentin 800 mg PO TID 08/07/21 08/08/21 History Glimepiride [Amaryl] 4 mg PO DAILY 08/07/21 08/09/21 History HYDROcodone/APAP 10-325MG [[place] 1 tab PO TID 08/07/21 08/08/21 History 10-325] Ibuprofen [Motrin] 800 mg PO Q6H PRN 08/07/21 08/08/21 History Metoprolol Tartrate [Lopressor] 25 mg PO BID 08/07/21 08/09/21 History Mirtazapine [Remeron] 45 mg PO HS 08/07/21 08/08/21 History Pravastatin Sodium [Pravachol] 40 mg PO DAILY 08/07/21 08/08/21 History hydrALAZINE HCL [Apresoline] 50 mg PO DAILY 08/07/21 08/08/21 History metFORMIN HCL [Glucophage] 1,000 mg PO BID 08/07/21 08/08/21 History traZODone HCL [Desyrel] 100 mg PO HS 08/07/21 08/08/21 History Aspirin EC [Ecotrin Low Dose] 81 mg PO DAILY 08/09/21 08/09/21 History Fluticasone Nasal [place] [Flonase 2 spray EA NOSTRIL DAILY PRN 08/09/21 08/09/21 History Nasal [place]] Krill/Om-3/Dha/Epa/Phospho/Ast 2 cap PO HS 08/09/21 08/09/21 History [[place]-3 Krill Oil 300 mg Sfgl] Losartan Potassium [Cozaar] 25 mg PO DAILY 08/09/21 08/09/21 History Multivit-Min/FA/Lycopen/Lutein 1 tab PO DAILY 08/09/21 08/09/21 History [Centrum Silver Tablet] lamoTRIgine 150 mg PO BID 08/09/21 08/09/21 History Allergies Allergy/AdvReac Type Severity Reaction Status Date / Time Penicillins Allergy Severe Anaphylaxis Verified 08/08/21 15:59 Physical Examination - Vital Signs Vital Signs: Vital Signs Temp Pulse Pulse Resp BP BP Pulse Ox 08/09/21 10:34 97.9 F 93 17 143/85 96 08/09/21 10:13 98.5 F 93 18 143/85 96 08/09/21 09:44 89 16 148/84 98 08/09/21 06:30 98.0 F 97 18 138/82 97 08/09/21 00:51 92 16 136/80 97 08/08/21 20:11 97.6 F 91 18 144/84 98 08/08/21 15:09 98.2 F 111 H 18 166/89 97 Intake and Output 08/08/21 08/09/21 08/09/21 22:59 06:59 14:59 Other: Weight 90.718 kg 90.718 kg Patient is a middle aged male, in no acute distress. Patient is alert awake oriented to time place and person. Patient knows it is July 2021 and that he is in [facility] and name of the current president. Speech and language functions are normal. Patient and name and repeat very well. No aphasia or dysarthria. No paraphasic errors noted. Attention, concentration and fund of knowledge is adequate. On cranial examination, pupils are round and reacting to light, visual agustin are full on confrontation, extraocular muscles are intact with no nystagmus. Face is symmetric, tongue protrudes to the midline. Palatal elevation and sensation normal, hearing and shoulder shrug normal, facial sensation normal. Shoulder shrug normal. On muscle strength testing, there is no pronator drift and the strength is normal in arms and legs distally and proximally. Deep tendon reflexes are diminished, and plantars are downgoing bilaterally. Sensory to touch is equal with no neglect on double simultaneous stimulation. Cerebellar function showed no ataxia for [id number] testing, although patient is tremulous for [id number] testing. No dysdiadochokinesia. Tone and bulk of muscles normal. Gait deferred. On general examination, there is no carotid bruit or murmur, S1-S2 audible. Abdomen is soft nontender. Chest is clear. Peripheral pulses are present. No edema. Results - Laboratory Findings CBC and BMP: 08/08/21 16:15 08/08/21 16:15 Abnormal Lab Findings: Abnormal Labs 08/08/21 08/08/21 08/08/21 16:15 16:15 16:15 WBC 17.0 H Neutrophils # 14.1 H Monocytes # 1.1 H Chloride 109 H BUN 24 H Glucose 143 H POC Glucose (mg/dL) Ur Amphetamines Screen Detected H U Methamphetamines Scrn Detected H U Benzodiazepines Scrn Detected H Urine Cocaine Screen Detected H U Marijuana (THC) Screen Detected H Coronavirus (PCR) 08/08/21 08/09/21 20:12 12:00 WBC Neutrophils # Monocytes # Chloride BUN Glucose POC Glucose (mg/dL) 213 H Ur Amphetamines Screen U Methamphetamines Scrn U Benzodiazepines Scrn Urine Cocaine Screen U Marijuana (THC) Screen Coronavirus (PCR) Detected A Assessment and Plan Assessment: * Altered mental status, possible delirium due to accidental overdose on Lamictal and also related to polysubstance abuse. Patient's Lamictal level is elevated 24.8 (2.0-15.0). * Episode of speech difficulty and confusion, probably related to above. Rule out TIA. * Newly diagnosed positive coronavirus. * History of reported seizure about 12 years ago, none since then. * History of multiple sclerosis. No evidence of MS exacerbation. * Polysubstance abuse. Urine positive for methamphetamine, amphetamine, marijuana, cocaine and benzodiazepine. * Tobacco use * Anxiety and depression Plan: * Hold Lamictal for 24 hours because of high Lamictal toxicity. Consider decreasing dose of Lamictal to 100 mg twice a day after 24 hours. * Patient will need TIA workup including carotid Doppler, 2-D echo, fasting lipid panel and hemoglobin A1c. * Start aspirin 81 mg daily for stroke prevention. * Patient counseled about complete tobacco cessation. * Patient counseled about abstinence from polysubstance abuse. * EEG to rule out any epileptiform activity. * Medical management as per IM.
[2021-08-09 17:03] LABS: Glucose,Whole Blood 148 mg/dL (75-99)
[2021-08-09 20:22] LABS: Glucose,Whole Blood 220 mg/dL (75-99)
[2021-08-09] MEDS ORDERED: PALIPERIDONE 3 MG TAB.ER.24 PO SCH (21:00)
[2021-08-09] MEDS ORDERED: traZODone HCL 50 MG TAB PO SCH (21:00)
--- NOTE | 2021-08-09 23:54 | US ---
EXAMINATION TYPE: US carotid duplex BILAT DATE OF EXAM: 08/09/2021 COMPARISON: Brain CT, MR Brain CLINICAL HISTORY: TIA. Patient stated was overmedicated with mood disorder medication and had slurred speech. EXAM MEASUREMENTS: RIGHT: Peak Systolic Velocity (PSV) cm/sec ----- Right CCA: 75.1 ----- Right ICA: 84.3 ----- Right ECA: 98.6 ICA/CCA ratio: 1.1 RIGHT: End Diastole cm/sec ----- Right CCA: 21.7 ----- Right ICA: 13.8 ----- Right ECA: 8.6 LEFT: Peak Systolic Velocity (PSV) cm/sec ----- Left CCA: 74.3 ----- Left ICA: 82.0 ----- Left ECA: 116.0 ICA/CCA ratio: 1.1 LEFT: End Diastole cm/sec ----- Left CCA: 23.7 ----- Left ICA: 34.7 ----- Left ECA: 0.0 VERTEBRALS (direction of flow): Right Vertebral: Antegrade Left Vertebral: Antegrade Rhythm: Normal Very mild intimal thickening is noted at bilateral carotid bifurcation, but PSV is wnl bilaterally. IMPRESSION: There is antegrade flow in the vertebral arteries. The images and measurements suggest less than 15 % stenosis in both internal carotid arteries. Criteria for Assigning % of Stenosis / Diameter reduction (Estimation based on the indirect measurements of the internal carotid artery velocities (ICA PSV). 1. Normal (no stenosis)=ICA PSV < 125 cm/s: ratio < 2.0: ICA EDV<40 cm/s. 2. Less than 50% stenosis=ICA PSV < 125 cm/s: ratio < 2.0: ICA EDV<40 cm/s. 3. 50 to 69% stenosis=ICA PSV of 125 to 230 cm/s: ration 2.0 ? 4.0: ICA EDV 40-100 cm/s. 4. Greater than 70% stenosis to near occlusion= ICA PSV > 230 cm/s: ratio > 4.0: ICA EDV > 100 cm/s. 5. Near occlusion= ICA PSV velocities may be low or undetectable: variable ratio and ICA EDV. 6. Total occlusion=unable to detect flow.
[2021-08-10] MEDS: SODIUM CHLORIDE 0.9% 1,000 ML IV SCH ×4 (04:29→12:37)
[2021-08-10 05:52] VITALS: RESP 18
[2021-08-10 07:14] LABS: Glucose,Whole Blood 126 mg/dL (75-99)
[2021-08-10] MEDS: DIROXIMEL FUMARATE 231 MG PO SCH (08:33)
[2021-08-10] MEDS: GLIMEPIRIDE 4 MG TAB PO SCH (08:34)
[2021-08-10] MEDS: HYDROcodone/APAP 10-325MG 1 EACH TAB PO SCH ×2 (08:42→15:28)
[2021-08-10] MEDS: hydrALAZINE HCL 50 MG TAB PO SCH (08:42)
[2021-08-10] MEDS: FUROSEMIDE 20 MG TAB PO SCH (08:42)
[2021-08-10] MEDS: GABAPENTIN 400 MG CAP PO SCH ×2 (08:43→15:28)
[2021-08-10] MEDS: PRAVASTATIN SODIUM 40 MG TAB PO SCH (08:43)
[2021-08-10] MEDS: LOSARTAN 25 MG TAB PO SCH (08:43)
[2021-08-10] MEDS: FENOFIBRATE 160 MG TAB PO SCH (08:43)
[2021-08-10] MEDS: metFORMIN 500 MG TAB PO SCH (08:43)
[2021-08-10] MEDS: PANTOPRAZOLE 40 MG TABLET PO SCH (08:44)
[2021-08-10] MEDS: ASPIRIN 81 MG PO SCH (08:44)
[2021-08-10] MEDS: CHOLECALCIFEROL 25 MCG (1000 IU) TABLET PO SCH (08:44)
[2021-08-10] MEDS: METOPROLOL TARTRATE 25 MG TAB PO SCH (08:44)
[2021-08-10 09:29] LABS: Chol/HDL Ratio 7.08 Ratio; LDL Cholesterol,Calculated 119.2 mg/dL (0.0-131.0)
--- NOTE | 2021-08-10 10:31 | ECHOF ---
Referral Reason:TIA MEASUREMENTS -------- HEIGHT: 165.1 cm WEIGHT: 95.3 kg BP: RVIDd: 3.2 cm (< 3.3) IVSd: 1.3 cm (0.6 - 1.1) LVIDd: 4.3 cm (3.9 - 5.3) LVPWd: 1.6 cm (0.6 - 1.1) IVSs: 1.4 cm LVIDs: 3.2 cm LVPWs: 1.7 cm LA Diam: 4.0 cm (2.7 - 3.8) Ao Diam: 3.2 cm (2.0 - 3.7) LA Diam: 4.1 cm (2.7 - 3.8) MV E Rocky: 1.38 m/s MV DecT: 228 ms MV A [place]: 1.10 m/s MV E/A Ratio: 1.26 RAP: 5.00 mmHg RVSP: 13.69 mmHg FINDINGS -------- Sinus rhythm. Pt is Covid Positive. LV size, wall thickness and systolic function are normal, with an EF greater than 55%. The left eloisa tricular size is normal. The right ventricle is normal in size. The left atrial size is normal. The right atrial size is normal. There is mild aortic valve sclerosis. There is no evidence of aortic regurgitation. Mild mitral regurgitation is present. Trace tricuspid regurgitation present. Right ventricular systolic pressure is normal at < 35 mmHg. The pulmonic valve was not well visualized. There is no pericardial effusion. CONCLUSIONS -------- 1. Pt is Covid Positive. 2. LV size, wall thickness and systolic function are normal, with an EF greater than 55%. 3. The left ventricular size is normal. 4. The right ventricle is normal in size. 5. The left atrial size is normal. 6. The right atrial size is normal. 7. There is mild aortic valve sclerosis. 8. Mild mitral regurgitation is present. 9. Trace tricuspid regurgitation present. 10. The pulmonic valve was not well visualized. 11. There is no pericardial effusion. DISINTEGRATOR OPERATOR: Alexandria Dangelo, KAMILA
[2021-08-10 11:44] LABS: Glucose,Whole Blood 106 mg/dL (75-99)
--- NOTE | 2021-08-10 11:55 | P.PN ---
Progress Note - Text Progress Note Date: 08/10/21 Interval History: Patient was seen today for psychiatric follow up for his confusion/delirium. Patient's nurse states that he is doing better today and has been cooperative getting his EEG done at the bedside. He was polite and directable during the interview. He states that he is doing well today and tolerating the meds well. He claims that he had no overnight issues and slept "very well". He demonstrated improved however may be superfcial insight into his medical treatment and behaviors. He claims that he is willing to follow up with his nuerologist and pcp and is going to take his meds every day. He is not endorsing any delusions. Not endorsing any depression or anxiety today. He was alert and opriented X 3. At this time patient denies any suicidal or homical ideations, intent or plan. Patient denies any auditory, visual hallucinations and denies any paranoia or delusions. Patient denies any side effects from the medications and has been compliant with meds. Mental Status Exam: General Appearance: Patient appears to be overweight, multiple tattoos, stated age is alert, pleasant, and more cooperative today. Patient appears to have fair hygiene and grooming wearing hospital gown with fair eye contact. Behavior: Patient is calmly lying in bed without any agitated behavior. more cooperative today Speech: Patient's speech is fluent and nonpressured. concrete Mood/Affect: Patient reports their mood is "good", affect is congruent Suicidality/Homicidality: Patient denies having any suicidal or homicidal ideation intent or plan. Perceptions: Patient denies any visual hallucinations and denies any auditory hallucinations Though content/process: more goal oriented today. not endorsing any delusions or paranoia. logical. more future oriented. Memory and concentration: AOX3, fair attention span. Judgment and insight: improved, may be somewhat superficial Assessment Delirium likely multifactorial medications, infection, substance use and possibly MS history of depressive disorder and anxiety disorder cannabis use disorder cocaine abuse methamphetamine use disorder nicotine dependence Plan: -At this time patient DOES NOT meet criteria for inpatient psychiatric admission. Patient does have fairly poor insight into his condition and is fairly focused on discharge however is paranoid and delusional. -Delirium precautions recommended with patient including - avoiding use of narcotics and [employer] sedatives, limit anticholinergic medications when possible, frequent re-orientation, minimize use of restraints, open window shades during the day and close them at night -Would recommend the following medication changes/additions: trazodone 50 mg daily at bedtime for insomnia/mood. continue with Remeron 45 mg qhs for insomnia/mood. restarted lamictal at lower dose due to elevated level, now at 100 mg bid. continue with [place] 3 mg qhs for psychosis. -child daycare worker to provide patient with outpatient mental health/psychiatry resources for appropriate follow up upon discharge -Superintendent Track spoke with patient about substance abuse and the harmful effects on medical and mental health, patient verbally understood and agreed. -At this time psychiatry will sign off -communicated plan with nurse. -patient was offered rehab however has poor insight into his substance use and does not beleive he needs it at all. -Please contact with any questions.
--- NOTE | 2021-08-10 13:35 | EEG ---
ELECTROENCEPHALOGRAM REPORT DATE OF SERVICE: 08/10/2021 PREAMBLE: This is a 46-year-old male with episodes of altered mental status. This study is performed to evaluate for any epileptiform activity. EEG FINDINGS: This is a 21 channel digital EEG recording with video component utilizing 10/20 international system with referential and bipolar montages. Background consists of well developed, well regulated, moderate voltage activity in mixed frequencies of 10-11 hertz alpha with low-voltage fast frequency beta activity seen in bihemispheric region. Background is posterior dominant, reactive to eye opening and closing. Photic stimulation was not performed. Hyperventilation was not done. Mild drowsiness was seen with appearance of bilaterally symmetric theta frequency rhythm. Deeper stages of sleep were not attained. No focal or generalized epileptiform activity was seen. IMPRESSION: This is a normal awake and drowsy EEG. No focal, lateralized, or epileptiform activity was seen. MMODL / IJN: [id number] /
[2021-08-10 15:01] VITALS: BP 152/74; PULSE 67; TEMP 98.7
[2021-08-10 16:30] LABS: Glucose,Whole Blood 159 mg/dL (75-99)
[2021-08-10] MEDS ORDERED: lamoTRIgine 100 MG TAB PO SCH (21:00)
--- NOTE | 2021-08-11 22:17 | P.DS ---
Providers Date of admission: 08/08/21 19:26 Attending physician: Clifford Carrasco MD Consults: 08/08/21 19:28 Consult Physician Routine Consulting Provider: Arsh Hairston Consult Reason/Comments: Mental status changes Do you want consulting provider notified?: Yes, Notify in am 08/09/21 12:28 Consult Physician Routine Consulting Provider: Cesar Prather Consult Reason/Comments: Seizures Do you want consulting provider notified?: Yes Primary care physician: Stated None Hospital Course: Final Diagnosis -Episodes of agitation, resolved, psychiatry evaluation -Incidental finding of elevated Lamictal level: dosing decreased -Covid 19 infection: Supportive care and COVID vitamins -PTSD and bipolar disorder -History of multiple sclerosis without any acute exacerbation -Hypertension -Type 2 diabetes mellitus for which patient is on metformin which will be continued -Hyperlipidemia -leukocytosis: No clinical evidence of infection at this time, reactive -Chronic nicotine dependence -Polysubstance abuse with marijuana, and cocaine in addition to prescribed medications -Remote seziure history, none in last 12 years, not on medication currently Discharge Disposition Patient is discharged home to follow up with his PCP Monday and his neurologist, he follows with Dr Villanueva in the office. Patient was evaluated by neurology and psychiatry, he would benefit from continuing with psychiatry outpatient. Medications were adjusted from recommendations. Hospital Course This is a pleasant 46 year old male who presented to the with episodes of aggitation and combative behavior at home. Patient was alert and oriented and cooperative at the time of initial assessment. Family was petitioned by his family. Patient was recently admitted to the hospital and left against medical advice a couple days ago. Urine drug screen is positive for amphetamines, methamphetamines, benzodiazepines, cocaine, marijuana. COVID PCR is postive, however patient is on room air at this time and appears unsymptomatic, he is not vaccinated. Additional labs on admission show a WBC of 17, glucose elevated in the 150s, hemoglobin A1C is 6.3. Cholesterol panel: Triglycerides 267, LDL 201, HDL 53, HDL 28. Imaging includes carotid doppler which shows less than 15% stenosis bilateral internal carotid arteries. Echo shows an greater than 55%, with mild mitral and trace tricuspid regurgitation. EEG shows no focal, lat eralized, or epileptiform activity. Per psychiatry patient did not meet requirements for inpatient treatment, and recommended outpatient referrals and follow up with substance abuse rehab however patient denied a need. He seems to have poor insight into substance abuse and his overall health status. Medications were adjusted per recommendations and would discourage the use of narcotics and anticholinergics if possible. Neurology evaluation recommended discharge on aspirin, lipitor, and decreased lamictal level. Vitals this admission; patient has been afebrile, heart rate in the 50-60s, blood pressure 130/60's, 97% on room air. 08/10/2021 Patient evaluated today and is anxious to return home. He is alert oriented x 3, appropriate. He is in contact for positive COVID PCR, still unsymptomatic. Focal neurological exam is negative, lungs are clear. Denies chest pain, chest pressure, cough, or shortness of breath. He will follow up with his PCP monday as well as his neurologist. Vitals are stable today. Cleared by all consultations for discharge. Educated on smoking cessation, and cessation of marijuana, cocaine, although he denies cocaine use. Please see medication reconciliation for a list of current medications. Thank you for allowing us to participate in the care of this patient. Patient Condition at Discharge: Fair Plan - Discharge Summary New Discharge Prescriptions: New traZODone HCL [Desyrel] 50 mg PO HS #3 tab Paliperidone [Invega] 3 mg PO HS #3 tablet lamoTRIgine [LaMICtal] 100 mg PO BID 3 Days #6 tab Atorvastatin Calcium [Lipitor] 40 mg PO HS #30 tablet Continue Omeprazole 20 mg PO DAILY hydrOXYzine pamoate [hydrOXYzine PAMOATE] 50 mg PO BID PRN PRN Reason: Anxiety Cetirizine HCl 10 mg PO DAILY Cholecalciferol [Vitamin D3 (25 Mcg = 1000 Iu)] 25 mcg PO DAILY Diroximel Fumarate [Vumerity] 462 mg PO BID Acetaminophen Tab [Tylenol] 1,000 mg PO Q6H PRN PRN Reason: Pain Mirtazapine [Remeron] 45 mg PO HS Ibuprofen [Motrin] 800 mg PO Q6H PRN PRN Reason: Pain Gabapentin 800 mg PO TID Fenofibrate [Lofibra] 160 mg PO DAILY Glimepiride [Amaryl] 4 mg PO DAILY Aspirin EC [Ecotrin Low Dose] 81 mg PO DAILY Fluticasone Nasal [place] [Flonase Nasal [place]] 2 spray EA NOSTRIL DAILY PRN PRN Reason: Congestion metFORMIN HCL [Glucophage] 1,000 mg PO BID HYDROcodone/APAP 10-325MG [[place] 10-325] 1 tab PO TID hydrALAZINE HCL [Apresoline] 50 mg PO DAILY Baclofen [Lioresal] 10 mg PO DAILY traZODone HCL [Desyrel] 100 mg PO HS Metoprolol Tartrate [Lopressor] 25 mg PO BID Albuterol Sulfate [Proair Hfa] 2 puff INHALATION RT-QID PRN PRN Reason: Shortness Of Breath Furosemide [Lasix] 20 mg PO DAILY Krill/Om-3/Dha/Epa/Phospho/Ast [[place]-3 Krill Oil 300 mg Sfgl] 2 cap PO HS Multivit-Min/FA/Lycopen/Lutein [Centrum Silver Tablet] 1 tab PO DAILY Losartan Potassium [Cozaar] 25 mg PO DAILY Discontinued Pravastatin Sodium [Pravachol] 40 mg PO DAILY lamoTRIgine 150 mg PO BID Discharge Medication List Omeprazole 20 mg PO DAILY 04/04/15 [History] hydrOXYzine pamoate [hydrOXYzine PAMOATE] 50 mg PO BID PRN 05/30/16 [History] Cetirizine HCl 10 mg PO DAILY 01/24/17 [History] Acetaminophen Tab [Tylenol] 1,000 mg PO Q6H PRN 08/07/21 [History] Albuterol Sulfate [Proair Hfa] 2 puff INHALATION RT-QID PRN 08/07/21 [History] Baclofen [Lioresal] 10 mg PO DAILY 08/07/21 [History] Cholecalciferol [Vitamin D3 (25 Mcg = 1000 Iu)] 25 mcg PO DAILY 08/07/21 [History] Diroximel Fumarate [Vumerity] 462 mg PO BID 08/07/21 [History] Fenofibrate [Lofibra] 160 mg PO DAILY 08/07/21 [History] Furosemide [Lasix] 20 mg PO DAILY 08/07/21 [History] Gabapentin 800 mg PO TID 08/07/21 [History] Glimepiride [Amaryl] 4 mg PO DAILY 08/07/21 [History] HYDROcodone/APAP 10-325MG [[place] 10-325] 1 tab PO TID 08/07/21 [History] Ibuprofen [Motrin] 800 mg PO Q6H PRN 08/07/21 [History] Metoprolol Tartrate [Lopressor] 25 mg PO BID 08/07/21 [History] Mirtazapine [Remeron] 45 mg PO HS 08/07/21 [History] hydrALAZINE HCL [Apresoline] 50 mg PO DAILY 08/07/21 [History] metFORMIN HCL [Glucophage] 1,000 mg PO BID 08/07/21 [History] traZODone HCL [Desyrel] 100 mg PO HS 08/07/21 [History] Aspirin EC [Ecotrin Low Dose] 81 mg PO DAILY 08/09/21 [History] Fluticasone Nasal [place] [Flonase Nasal [place]] 2 spray EA NOSTRIL DAILY PRN 08/09/21 [History] Krill/Om-3/Dha/Epa/Phospho/Ast [[place]-3 Krill Oil 300 mg Sfgl] 2 cap PO HS 08/09/21 [History] Losartan Potassium [Cozaar] 25 mg PO DAILY 08/09/21 [History] Multivit-Min/FA/Lycopen/Lutein [Centrum Silver Tablet] 1 tab PO DAILY 08/09/21 [History] Atorvastatin Calcium [Lipitor] 40 mg PO HS #30 tablet 08/10/21 [Rx] Paliperidone [Invega] 3 mg PO HS #3 tablet 08/10/21 [Rx] lamoTRIgine [LaMICtal] 100 mg PO BID 3 Days #6 tab 08/10/21 [Rx] traZODone HCL [Desyrel] 50 mg PO HS #3 tab 08/10/21 [Rx] Follow up Appointment(s)/Referral(s): Carlos Villanueva MD [Medical Doctor] - 1 Week [facility] [REFERRING] - 1-2 Days (Needs to be seen on Monday) Ambulatory/Diagnostic Orders: Basic Metabolic Panel [LAB.AMB] Time Frame: 2 Days, Location: None Selected Complete Blood Count w/diff [LAB.AMB] Time Frame: 2 Days, Location: None Selected Patient Instructions/Handouts: Coronavirus Disease 2019 (COVID-19), Polysubstance Abuse (ED) Activity/Diet/Wound Care/Special Instructions: Please give community resources for rehabilitation services Discharge Disposition: HOME SELF-CARE
== END 2021-08-10 18:01 | disposition home or self-care (01) ==
LOC: EC 14:00 → 5NMEDONC 19:26 → 4SSUR 08-09 02:48
PROVIDERS: ADMIT Internal Medicine; ATTEND Internal Medicine
DX: T42.6X1A Poisoning by other antiepileptic and sedative-hypnotic drugs, accidental (unintentional), initial encounter (principal); F43.10 Post-traumatic stress disorder, unspecified; F31.9 Bipolar disorder, unspecified; U07.1 COVID-19; F05 Delirium due to known physiological condition; E11.9 Type 2 diabetes mellitus without complications; E11.42 Type 2 diabetes mellitus with diabetic polyneuropathy; E78.5 Hyperlipidemia, unspecified; E86.0 Dehydration; F12.10 Cannabis abuse, uncomplicated; F14.10 Cocaine abuse, uncomplicated; F15.10 Other stimulant abuse, uncomplicated; F17.210 Nicotine dependence, cigarettes, uncomplicated; G35 Multiple sclerosis; G40.909 Epilepsy, unspecified, not intractable, without status epilepticus; I10 Essential (primary) hypertension; I65.23 Occlusion and stenosis of bilateral carotid arteries; D72.829 Elevated white blood cell count, unspecified; E66.9 Obesity, unspecified; Z68.32 Body mass index [BMI] 32.0-32.9, adult; Z79.82 Long term (current) use of aspirin; Z79.899 Other long term (current) drug therapy; Z79.84 Long term (current) use of oral hypoglycemic drugs; Z88.0 Allergy status to penicillin; Z90.49 Acquired absence of other specified parts of digestive tract; Z87.11 Personal history of peptic ulcer disease; Z83.3 Family history of diabetes mellitus; Z82.5 Family history of asthma and other chronic lower respiratory diseases
CPT/HCPCS: 99285; 82075; 36415; 95816; 93306; 80061; 80053; 80175; 82140; 82550; 83605; 83690; 83735; 85025; 80306; 83036; 87635; 93880; G0378 ×4